=== PATIENT | male | born 1955 | race Two or more races ===

== ENCOUNTER 2023-11-16 08:45 | Outpatient (OUT) | payer BC, MEDICARE, SELFPAY ==
--- NOTE | 2023-11-16 09:12 | ECG_ITS ---
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
--- NOTE | 2023-11-16 10:02 | XR_ITS ---
The [address] [address] Patient Name: CAROLYN CAMARENA MRN: [id number] date: 1955 Sex: M Assigned Patient Location: [facility] Current Patient Location: [facility] Accession/Order Number: [id number] Exam Date: 11/16/2023 09:55 Report Date: 11/16/2023 13:40 At the request of: NEERAJ ROA Procedure: XR chest 2V EXAMINATION: XR chest 2V HISTORY: Preop exam COMPARISON: 02/04/2020 TECHNIQUE: PA and lateral FINDINGS: LUNGS: No significant pulmonary parenchymal abnormalities. VASCULATURE: No increased pulmonary vasculature. PLEURA: No pneumothorax, effusion, or pleural thickening. CARDIAC: No cardiomegaly or cardiac silhouette abnormality. MEDIASTINUM: No visible mass or adenopathy. BONES: Mild degenerative disc disease and spondylosis without visible acute abnormalities. OTHER: Negative. XR/XR chest 2V IMPRESSION: No acute cardiopulmonary process Electronically authenticated by: JT ARNOLD Date: 11/16/2023 13:40
--- NOTE | 2023-11-16 10:10 | P.GSHP_ITS ---
History of Present Illness History of Present Illness Chief complaint: bladder tumor Narrative: Patient presents for preadmission testing. Please see HPI from Dr. Unger dated November 04, 2023. Review of Systems ROS Narrative Please see ROS from Dr. Unger dated November 04, 2023. [facility] History (Updated 11/16/23 @ 09:39 by Eunice Mustafa NP) Heartburn ?R12 - Heartburn (ICD-10) Extremity edema ?R60.0 - Localized edema (ICD-10) Hypertension ?I10 - Essential (primary) hypertension (ICD-10) Coronary artery disease ?I25.10 - Atherosclerotic heart disease of [place] coronary artery without angina pectoris (ICD-10) Peptic ulcer ?K27.9 - Peptic ulcer, site unspecified, unspecified as acute or chronic, without hemorrhage or perforation (ICD-10) Gross hematuria ?R31.0 - Gross hematuria (ICD-10) BPH with obstruction/lower urinary tract symptoms ?N40.1 - Benign prostatic hyperplasia with lower urinary tract symptoms (ICD- 10) ?N13.8 - Other obstructive and reflux uropathy (ICD-10) Bladder cancer ?C67.9 - Malignant neoplasm of bladder, unspecified (ICD-10) Bladder tumor ?D49.4 - Neoplasm of unspecified behavior of bladder (ICD-10) Dyspnea on exertion ?R06.09 - Other forms of dyspnea (ICD-10) Hyperlipidemia ?E78.5 - Hyperlipidemia, unspecified (ICD-10) Myocardial infarction ?I21.9 - Acute myocardial infarction, unspecified (ICD-10) Atherosclerotic heart disease [place] coronary artery w/angina pectoris ?I25.119 - Atherosclerotic heart disease of [place] coronary artery with unspecified angina pectoris (ICD-10) Surgical History (Updated 11/16/23 @ 09:39 by Eunice Mustafa NP) History of arthroscopy of knee ?Z98.890 - Other specified postprocedural states (ICD-10) History of esophagogastroduodenoscopy (EGD) ?Z98.890 - Other specified postprocedural states (ICD-10) History of bladder surgery ?Z98.890 - Other specified postprocedural states (ICD-10) S/P cystoscopy ?Z98.890 - Other specified postprocedural states (ICD-10) History of tonsillectomy ?Z90.89 - Acquired absence of other organs (ICD-10) History of cardiac catheterization ?Z98.890 - Other specified postprocedural states (ICD-10) History of heart artery stent ?Z95.5 - Presence of coronary angioplasty implant and graft (ICD-10) Presence of coronary angioplasty implant and graft ?Z95.5 - Presence of coronary angioplasty implant and graft (ICD-10) Family History (Updated 11/16/23 @ 09:39 by Eunice Mustafa NP) Other Family history of diabetes mellitus Family history of heart disease Family history of stroke Social History (Updated 11/16/23 @ 09:29 by Eunice Mustafa NP) Within the past year, how often did you have a drink containing alcohol: 2-4 times a month Smoking status: Former smoker Non-prescribed substance use: denies use Previous occupational history: [employer] Highest level of school completed/degree received: high school graduate Meds Home Medications and Allergies Home Medications ?Medication ?Instructions ?Recorded ?Confirmed ?Type ascorbic acid (vitamin C) 1,000 mg 1 g PO DAILY 11/16/23 11/16/23 History capsule aspirin 81 mg tablet,delayed 81 mg PO DAILY 11/16/23 11/16/23 History release (Adult Aspirin Regimen) atorvastatin 40 mg tablet 40 mg PO DAILY 11/16/23 11/16/23 History lisinopril 5 mg tablet 5 mg PO DAILY 11/16/23 11/16/23 History metoprolol succinate 25 mg 25 mg PO DAILY 11/16/23 11/16/23 History tablet,extended release 24 hr nitroglycerin 0.4 mg sublingual 0.4 mg sublingual Q5M PRN chest 11/16/23 11/16/23 History tablet pain Allergies Allergy/AdvReac Type Severity Reaction Status Date / Time No Known Drug Allergies Allergy Verified 11/16/23 09:25 Exam Narrative Exam Narrative: Constitutional: Awake, alert, comfortable, well-appearing, nontoxic, interactive, vital signs as charted Head: Normocephalic, atraumatic Neck: Supple, normal appearance, normal range of motion, no meningeal signs, no lymphadenopathy Respiratory: No respiratory distress, breath sounds clear Cardiovascular: Regular rate and rhythm, strong and regular heart tones Abdomen: Nontender, normal bowel sounds, soft, no CVA tenderness Musculoskeletal: Normal gait, no swelling or edema Skin: No rashes or induration, no lesions, only visible skin inspected Neuro: No neurological deficits, normal sensation, Subtle vocal tremor noted Psychiatric: Oriented ?3, normal affect Assessment and Plan Assessment and Plan (1) Bladder tumor: (2) Bladder cancer: (3) BPH with obstruction/lower urinary tract symptoms: Plan Cystoscopy, left retrograde, left ureteroscopy, TURBT, possible left stent placement scheduled with Dr. Unger December 01, 2023.
[2023-11-16 10:27] LABS: Anion Gap 11.5; BUN Creatinine Ratio 21.6; Calcium 9.1 mg/dL (8.5-10.1); Carbon Dioxide 25.9 mmol/L (21.0-32.0); Chloride 106 mmol/L (98-107); Estimated GFR (African America >60 (>=60); Estimated GFR (Non-African Ame >60 (>=60); Glucose 110 mg/dL (74-106); Potassium 4.4 mmol/L (3.5-5.1); Sodium 139 mmol/L (136-145)
[2023-11-16 10:29] LABS: INR 1.01; Partial Thromboplastin Time 27.3 sec (22.3-36.2); Prothrombin Time 10.7 sec (9.0-11.6)
[2023-11-16 10:55] LABS: Basophils Absolute Auto 0.1 10^3/uL (0.0-0.1); Basophils Percent Auto 1.1 % (0.2-2.0); Eosinophils Absolute Auto 0.3 10^3/uL (0.0-0.7); Eosinophils Percent Auto 4.7 % (0.9-7.0); Hematocrit 42.1 % (42.0-54.0); Immature Granulocytes Abs Auto 0.01 10^3/uL (0.00-0.03); Immature Granulocytes Pct Auto 0.2 % (0.0-0.5); Lymphocytes Absolute Auto 2.5 10^3/uL (1.2-3.8); Lymphocytes Percent Auto 37.9 % (20.5-60.0); Mean Corpuscular HGB Conc 33.3 g/dL (29.9-35.2); Mean Corpuscular Hemoglobin 28.5 pg (25.9-34.0); Mean Corpuscular Volume 85.7 fL (80.0-94.0); Mean Platelet Volume 10.4 fL (9.5-13.5); Monocytes Absolute Auto 0.6 10^3/uL (0.3-0.8); Monocytes Percent Auto 8.6 % (1.7-12.0); Neutrophils Absolute Auto 3.2 10^3/uL (1.4-6.5); Neutrophils Percent Auto 47.5 % (43.0-75.0); Platelet Count 251 10^3/uL (150-450); Red Blood Count 4.91 10^6/uL (4.70-6.10); Red Cell Distribution Width 15.9 % (11.0-15.0); White Blood Count 6.6 10^3/uL (4.0-11.0)
== END 2023-11-16 08:46 | disposition home or self-care (01) ==
LOC: PST 08:54
PROVIDERS: PCP Physician Assistant; Visit Provider Urology
DX: Z01.810 Encounter for preprocedural cardiovascular examination (principal); Z01.812 Encounter for preprocedural laboratory examination; Z01.818 Encounter for other preprocedural examination; D49.4 Neoplasm of unspecified behavior of bladder; Z85.51 Personal history of malignant neoplasm of bladder
CPT/HCPCS: 71046; 80048; 84153; 85025; 85610; 85730; 93005; G0463

== ENCOUNTER 2023-12-01 10:32 | Day surgery (SDC) | payer MEDICARE, SELFPAY ==
[2023-11-16 10:06] VITALS: BP 110/64; PULSE 57; TEMP 36.5; O2SAT 98; BMI 35.8
[2023-12-01] VITALS (15 sets, daily range): BP systolic 104–161; BP diastolic 56–112; PULSE 52–78; TEMP 36.1–36.3; O2SAT 88–96; BMI 35.7
--- OUTSIDE RECORDS SUMMARY | 2023-12-01 10:57 | XMS_ITS | CCD ---
Author Organization [facility] ion [facility] Care Team Providers Care Technical Assistant Name Role Phone Praneeth Hadley Attending Unavailable Damion Mary Etienne Referring Unavailable Mary Bruno Lowell Primary Care Unavailable Mary Bruno Primary Care Provider Lee Ann Morrow Attending Provider Praneeth Hadley Unavailable Unavailable Damion Lowell Unavailable Unavailable MD Mary Bruno Primary Care Provider MD Lee Ann Morrow Attending Provider MARY BRUNO Primary Care Physician [phone] Lee Ann Morrow Attending Unavailable Lee Ann Morrow Admitting Unavailable Mary Bruno Primary Care Unavailable Hemmer Reema GOMEZ Primary Care Provider Randal Flores Attending UnavailRandal Waite Admitting Unavailabl e HemReema negron Primary Care Unavailable HemmerKehindeen M Primary Care Unavailable Kirsty Donnellyeb Attending Unavailable Jose Donnellyjeeb Admitting Unavailable DechristophAmelia Marrero Attending Unavailable Amelia Carrasquillo Admitting Unavailable Hemmer, Reema M Primary Care Unavailable Ivonne Vinson Attending Unavailable Ivonne Vinson Admitting Unavailable Hemmer, Reema M Primary Care Unavailable KIRSTY DONNELLYEB A Attending Unavailable HEMAYDEE REEMA Referring Unavailable HEMMER REEMA Primary Care Unavailable HEMAYDEE REEMA Referring Unavailable HEMMER, REEMA Primary Care Unavailable Ramiro UNGER Attending Unavailable Ramiro UNGER Attending Unavailable Ramiro UNGER Attending Unavailable Ramiro UNGER Admitting Unavailable Ramiro UNGER Attending Unavailable Ramiro UNGER Attending Unavailable Unavailable Unavailable Unavailable Allergies Allergy Classification Reported Allergen(s) Allergy Type Date of Onset Reaction(s) Facility (1 source) No Known Medication Allergies; Translations: [No Known Medication Allergies] Propensity to adverse reactions (disorder) [facility] Repository Medications Current Medications Medication Drug Class(es) Dates Sig (Normalized) Sig (Original) aspirin 81 mg oral tablet (9 sources) Platelet Aggregation Inhibitor, Nonsteroidal Anti-inflammatory Drug Start: 05-04-2017 take 81 mg by mouth once daily aspirin 81 mg, Oral, Daily, Refills(s) 0, Prophylaxis Start Date: 05/04/17 Status: Ordered aspirin 81 mg Ta ke by mouth daily. 0 Active atorvastatin 40 mg oral tablet (10 sources) HMG-CoA Reductase Inhibitor Start: 05-04-2017 End: 07-22-2023 take 40 mg by mouth once daily Lipitor 40 mg, Oral, Daily, Refills(s) 0, High cholesterol Start Date: 05/04/17 Status: Ordered clopidogrel 75 mg oral tablet (3 sources) P2Y12 Platelet Inhibitor Start: 08-25-2020 take 75 mg by mouth once daily Plavix 75 mg, Oral, Daily, Refills(s) 0, Blood Thinner Start Date: 08/25/20 Status: Ordered furosemide 40 mg oral tablet (1 source) Loop Diuretic Start: 09-01-2023 take 1 tablet by mouth once daily furosemide (LASIX) 40 mg tablet Take 1 tablet (40 mg total) by mouth daily. 90 tablet 3 09/01/2023 Active lisinopril 5 mg oral tablet (11 sources) Angiotensin Converting Enzyme Inhibitor Start: 05-04-2017 End: 07-22-2023 take 5 mg by mouth once daily lisinopril 5 mg, Oral, Daily, Refills(s) 0, High blood pressure Start Date: 05/04/17 Status: Ordered 24 hr metoprolol succinate 25 mg extended release oral tablet (11 sources) beta-Adrenergic Blayne Start: 06-24-2023 End: 07-22-2023 take 1 tablet by mouth every twenty-four hours in the morning metoprolol succinate XL (TOPROL XL) 25 mg 24 hr tablet Take 1 tablet (25 mg total) by mouth in the morning. 90 tablet 3 07/22/2023 Active Start: 05-04-2017 End: 06-24-2023 take 1 tablet by mouth once daily metoprolol 25 mg ER Tab 25 mg = 1 tab(s), Oral, Daily, Refills(s) 0, High blood pressure Start Date: 05/04/17 Status: Ordered Nitro 0.4 mg Tab (3 sources) Start: 05-04-2017 Nitro 0.4 mg Tab = 1 tab(s), SubLingual, q5min, PRN Chest pain, # 25 tab(s), Refills(s) 3 Start Date: 05/04/17 Status: Ordered nitroglycerin 0.4 mg sublingual tablet (7 sources) Nitrate Vasodilator Start: 06-23-2022 End: 07-22-2023 nitroglycerin (NITROSTAT) 0.[address] 1 tablet (0.4 mg total) under the tongue as needed (Chest pain). 25 tablet 2 07/22/2023 Active spironolactone 25 mg oral tablet (1 source) Aldosterone Antagonist Start: 09-01-2023 take 1 tablet by mouth in the morning spironolactone (ALDACTONE) 25 mg tablet Take 1 tablet (25 mg total) by mouth in the morning. 90 tablet 3 09/01/2023 Active Completed/Discontinued Medications Medication Drug Class(es) Dates Sig (Normalized) Sig (Original) ciprofloxacin 500 mg oral tablet (3 sources) Quinolone Antimicrobial Start: 10-18-2023 take 1 tablet by mouth every twenty-four hours Cipro 500 mg Tab 500 mg = 1 tab(s), Oral, q24hr, Take 1 tab the day before the procedure and take 1 tab after procedure is complete., # 2 tab(s), Refills(s) 0, Pharmacy: [facility] Start Date: 10/18/23 Status: Ordered Start: 03-17-2022 take 1 tablet by joie th every twenty-four hours Cipro 500 mg Tab 500 mg = 1 tab(s), Oral, q24hr, Take 1 tab the day before the procedure and take 1 tab after procedure is complete., # 2 tab(s), Refills(s) 0, Pharmacy: [facility], 183, cm, 09/10/21 12:17:00 EDT, Height/Length Dosing, 121, kg, 09/10/21 12:... Start Date: 03/17/22 Status: Ordered Problems Active Problems Problem Classification Problem Date Documented Da te Episodic/Chronic Abdominal pain (3 sources) Flank pain 09-11-2020 Episodic Acute myocardial infarction (9 sources) Myocardial infarction; Translations: [Myocardial infarction in recovery phase] Onset: 08-29-2009 03-22-2019 Chronic Cancer of bladder (5 sources) Malignant tumor of urinary bladder; Translations: [Malignant neoplasm of bladder, unspecified] Onset: 05-19-2022 Chronic Cancer; other and unspecified primary (5 sources) H/O: malignant neoplasm 08-25-2020 Episodic Coronary atherosclerosis and other heart disease (13 sources) Coronary arteriosclerosis; Translations: [Atherosclerotic heart disease of [place] coronary artery without angina pectoris] Onset: 01-29-2011 05-04-2017 Chronic Disorders of lipid metabolism (8 sources) Hyperlipidemia; Translations: [Hyperlipidemia, unspecified] Onset: 03-06-2021 03-06-2021 Chronic Essential hypertension (4 sources) Hypertensive disorder; Translations: [Essential (primary) hypertension] 05-04-2017 Chronic Genitourinary symptoms and ill-defined conditions (3 sources) Urge incontinence of urine 09-11-2020 Chronic Genitourinary symptoms and ill-defined conditions (6 sources) Dysuria; Translations: [Mino hematuria] 09-11-2020 Episodic Hyperplasia of prostate (4 sources) Benign prostatic hypertrophy with outflow obstruction; Translations: [Benign prostatic hyperplasia with lower urinary tract symptoms] Onset: 11-04-2023 08-25-2020 Chronic Other aftercare (1 source) Long-term current use of drug therapy; Translations: [MCFP (current) use of antithrombotics/anti platelets] Onset: 11-04-2023 Episodic Other ear and sense organ disorders (1 source) Sensorineural hearing loss, bilateral; Translations: [Bilateral sensorineural hearing loss] Chronic Other male genital disorders (3 sources) Spermatocele 08-25-2020 Episodic Other nutritional; endocrine; and metabolic disorders (9 sources) Body mass index 30+ - obesity; Translations: [Body mass index (BMI) 35.0-35.9, adult] Onset: 03-06-2021 01-29-2021 Chronic Residual codes; unclassified (3 sources) H/O: anticoagulant therapy 03-22-2019 Episodic Residual codes; unclassified (1 source) Pain, unspecified; Translations: [Pain, unspecified] Onset: 08-19-2023 Episodic Screening and history of mental health and substance abuse codes (3 sources) Ex-smoker 03-27-2019 Episodic Unclassified (1 source) Med Refill Onset: 07-22-2023 Unclassified (2 sources) Patient encounter status 11-04-2023 Past or Other Problems Problem Classification Problem Date Documented Date Episodic/Chronic Complication of device; implant or graft (6 sources) Arteriosclerosis of autologous vein coronary artery bypass graft; Translations: [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(s) with unspecified angina pectoris] Onset: 12-13-2014 Resolved: 10-07-2017 10-07-2017 Chronic Coronary atherosclerosis and other heart disease (6 sources) History of cardiovascular surgery; Translations: [Presence of coronary angioplasty implant and graft] Onset: 05-01-2010 03-06-2021 Episodic Other ear and sense organ disorders (1 source) Bilateral tinnitus; Translations: [Tinnitus of both ears] Episodic Other lower respiratory disease (7 sources) Dyspnea on exertion; Translations: [Other forms of dyspnea] Onset: 03-06-2021 06-24-2023 Episodic Other screening for suspected conditions (not mental disorders or infectious disease) (7 sources) Elevated prostate specific antigen [PSA]; Translations: [Cardiovascular stress test abnormal] Onset: 09-07-2019 09-07-2019 Episodic Results Test Name Value Interpretation Reference Range Facil ity Consultation Noteon 11-28-19 24 Consultation Note [id number]#1.00T IFF Normal [facility] ECG 12-Leadon 11-17-2023 ECG 12-Lead [id number]#1.00T IFF Normal [facility] Formson 11-17-2023 Forms [id number]#1.00TI FF [facility] Insurance Correspondenceon 0 11-17-2023 Insurance Correspondence [id number]#1.00T IFF Normal [facility] RAD - MISCon 11-17-2023 RAD - MISC [id number]#1.00TI FF Normal [facility] UroVysion Fish and Urine Cyt o ([facility])on 11-11-2023 UVFISH & UC Diagnosis Info Invalid Interpretation Code [facility] Comment on above: Result Comment: A:Ur ine,Bladder Wash:Bladder Wash Diagnosis Summary - Diagnosis Summary - The UroVysion FISH study detected normal copy numbers for chromosomes 3, 7, 17, and 9p21. 200 cells were analyzed in this evaluation. No evidence of aneuploidy for chromosomes 3, 7, or 17 or deletion of the 9p21 locus was found in cells present in this specimen. This test does not rule out the possibility of a low grade non-invasive papillary urothelial carcinoma. These findings should be correlated with cytology and cystoscopy results.* Microscopic Notes - Microscopic Notes - Abnormal cells 9p21 deletions: Abnormal cells aneploid events: Total cells analyzed: 200 Hematuria: Gross Description Site ID:A color Yellow fixative Alcohol Received 110 mls of clear yellow fluid with the patient's name and, Bladder Wash on the vial. Electronically signed by : on: 11/11/2023 12:35:22 Performed By: #### 1 [id number] #### [facility] [address] [place] [address] Cardiovascular Reporton 10-25 Cardiovascular Report [id number]#1.00TI [facility] Consent for Procedure/Surger yon 11-09-2023 Consent for Procedure/Surgery [id number]#1.00 TIFF Normal [facility] Echocardiographyon Echocardiography [id number]#1.00TI FF [facility] Consent for Procedure/Surger yon 11-07-2023 Consent for Procedure/Surgery [id number]#1.00TI FF [facility] Consent for Procedure/Surgery [id number]#1.00TI FF Normal [facility] Ambulatory Visit Summaryon 0 11-04-2023 Ambulatory Visit Summary CAROLYN CAMARENA :1955 Visit Date:11/04/2023 Ambulatory Visit Instructions Your Diagnosis Bladder cancer BPH with urinary obstruction Antiplatelet or antithrombotic long-term use Your Care Team Attending Physician - CRISPIN ESCAMILLA, Ramiro Camarillo Primary Care Physician - MARY BRUNO MD This Is Your Medications List ciprofloxacin (Cipro 500 mg Tab) Contact prescribing physician if questions or concerns aspirin atorvastatin (Lipitor) clopidogrel (Plavix) lisinopril metoprolol (metoprolol 25 mg ER Tab) nitroglycerin (Nitro 0.4 mg Tab) Procedures Performed Flexible cystoscope (11/04/2023), Flexible cystoscopy (11/04/2023), Cystoscopy (09/10/2021), Cystoscopy (01/29/2021), Cystoscopy (10/29/2020), Cystoscopy (03/27/2019), Cystoscopy and transurethral resection of bladder tumor (05/06/2017), Angioplasty, Arthroscopy of knee, back surgery, Cystoscopy, Stent placement. Discharge Vitals Heart Rate (Peripheral) 68 Respiratory Rate 18 Blood Pressure 146/90 Height 183.0 cm Height 72 in Weight 121 kg Weight 266.2 lb BMI 36.13 What to do next Scheduled Follow-Up Appointments 2023 8:00 AM EDT With: Where: [facility] [id number] [place] [address]- \.br\ You Need to Schedule the Following Appointments\.b r\ Follow Up with CRISPIN ESCAMILLA, Ramiro Camarillo, URL When: \.br\ Where:\.br\ [address]br\ [place] [address]-\.br\ Medications\.br \ What How Much When Instructions\.b r\ Unchanged ciprofloxacin (Cipro 500 mg Tab) 1 Tablets By Mouth Every 24 hours Take 1 tab the day before the procedure and take 1 tab after procedure is complete. \.br\ Unchanged aspirin 81 Milligram By Mouth Every day Contact prescribing physician if questions or concerns \.br\ Unchanged atorvastatin (Lipitor) 40 Milligram By Mouth Every day Contact prescribing physician if questions or concerns \.br\ Unchanged clopidogrel (Plavix) 75 Milligram By Mouth Every day Contact prescribing physician if questions or concerns \.br\ Unchanged lisinopril 5 Milligram By Mouth Every day Contact prescribing physician if questions or concerns \.br\ Unchanged metoprolol (metoprolol 25 mg ER Tab) 1 Tablets By Mouth Every day Contact prescribing physician if questions or concerns \.br\ Unchanged nitroglycerin (Nitro 0.4 mg Tab) 1 Tablets Sublingual Every 5 minutes as needed for Chest pain Contact prescribing physician if questions or concerns \.br\ Medications and Immunizations Administered\.b r\ Given\.br\ lidocaine Top 2% Gel w/Appl 6 mL, 6 mL, Topical. 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 Please share your experience with us by completing your survey. We appreciate your feedback and thank you for choosing us for your care.\.br\ Education Materials\.br\ Transurethral Resection of Bladder Tumor\.br\ \.br\ Transurethral resection of a bladder tumor is the removal (resection) of cancerous tissue (tumor) from the inside wall of the bladder. The bladder is the organ that holds urine. The tumor is removed through the tube that carries urine out of the body (urethra).\.br\ In a transurethral resection, a thin telescope with a light, a tiny camera, and an electric cutting edge (resectoscope) is passed through the urethra. In men, the opening of the urethra is at the end of the penis. In women, it is just above the opening of the vagina.\.br\ Tell a health care provider about:\.br\ ? \.br\ Any allergies you have.\.br\ ? \.br\ All medicines you are taking, including vitamins, herbs, eye drops, creams, and zrjd-kdq-tozoyy r medicines.\.br\ ? \.br\ Any problems you or family members have had with anesthetic medicines.\.br\ ? \.br\ Any bleeding problems you have.\.br\ ? \.br\ Any surgeries you have had.\.br\ ? \.br\ Any medical conditions you have, including recent urinary tract infections.\.br \ ? \.br\ Whether you are or may be .\.br\ What are the risks?\.br\ Generally, this is a safe procedure. However, problems may occur, including:\.br\ ? \.br\ Infection.\.br\ ? \.br\ Bleeding.\.br\ ? \.br\ Allergic reactions to medicines.\.br\ ? \.br\ Damage to nearby structures or organs.\.br\ ? \.br\ Difficulty urinating from blockage of the urethra or not being able to urinate (urinary retention).\.br \ ? \.br\ Deep vein thrombosis. This is a blood clot that can develop in your leg.\.br\ ? \.br\ Recurring cancer.\.br\ What happens before the procedure?\.br\ When to stop eating and drinking\.br\ Follow instructions from your health care provider about what you may eat and drink before your procedure. These may include:\.br\ ? \.br\ 8 hours before your procedure\.br\ ? \.br\ Stop eating most foods. Do not eat meat, fried foods, or fatty foods.\.br\ ? \.br\ Eat only light foods, such as toast or crackers.\.br\ ? \.br\ All liquids are okay except energy drinks and alcohol.\.br\ ? \.br\ 6 hours before your procedure\.br\ ? \.br\ Stop eating.\.br\ ? \.br\ Drink only clear liquids, such as water, clear fruit juice, black coffee, plain tea, and sports drinks.\.br\ ? \.br\ Do not drink energy drinks or alcohol.\.br\ ? \.br\ 2 hours before your procedure\.br\ ? \.br\ Stop drinking all liquids.\.br\ ? \.br\ You may be allowed to take medicines with small sips of water.\.br\ Medicines\.br\ Ask your health care provider about:\.br\ ? \.br\ Changing or stopping your regular medicines. This is especially important if you are taking diabetes medicines or blood thinners.\.br\ ? \.br\ Taking medicines such as aspirin and ibuprofen. These medicines can thin your blood. Do not take these medicines unless your health care provider tells you to take them.\.br\ ? \.br\ Taking szmo-pze-rddbwo r medicines, vitamins, herbs, and supplements.\.b r\ General instructions\.b r\ ? \.br\ If you will be going home right after the procedure, plan to have a responsible adult:\.br\ ? \.br\ Take you home from the hospital or clinic. You will not be allowed to drive.\.br\ ? \.br\ Care for you for the time you are told.\.br\ ? \.br\ Ask your health care provider what steps will be taken to help prevent infection. These steps may include:\.br\ ? \.br\ Washing skin with a germ-killing soap.\.br\ ? \.br\ Taking antibiotic medicine.\.br\ ? \.br\ Do not use any products that contain nicotine or tobacco for at least 4 weeks before the procedure. These products include cigarettes, chewing tobacco, and vaping devices, such as e-cigarettes. If you need help quitting, ask your health care provider.\.br\ What happens during the procedure?\.br\ ? \.br\ An IV will be inserted into one of your veins.\.br\ ? \.br\ You will be given one or more of the following:\.br\ ? \.br\ A medicine to help you relax (sedative).\.br \ ? \.br\ A medicine that is injected into your spine to numb the area below and slightly above the injection site (spinal anesthetic).\.b r\ ? \.br\ A medicine that is injected into an area of your body to numb everything below the injection site (regional anesthetic).\.b r\ ? \.br\ A medicine to make you fall asleep (general anesthetic).\.b r\ ? \.br\ Your legs will be placed in foot rests (stirrups) to open your legs and bend your knees.\.br\ ? \.br\ The resectoscope will be passed through your urethra and into your bladder.\.br\ ? \.br\ The part of your bladder with the tumor will be resected by the cutting edge of the resectoscope.\. br\ ? \.br\ Fluid will be passed to rinse out the cut tissues (irrigation).\. br\ ? \.br\ The resectoscope will then be taken out.\.br\ ? \.br\ A small, thin tube (catheter) will be passed through your urethra and into your bladder. The catheter will drain urine into a bag outside of your body.\.br\ The procedure may vary among health care providers and hospitals.\.br\ What happens after the procedure?\.br\ ? \.br\ Your blood pressure, heart rate, breathing rate, and blood oxygen level will be monitored until you leave the hospital or clinic.\.br\ [facility] Ambulatory Visit Summary CAROLYN CAMARENA :1955 Visit Date:11/04/2023 Ambulatory Visit Instructions Your Diagnosis Bladder cancer BPH with urinary obstruction Antiplatelet or antithrombotic long-term use Your Care Team Attending Physician - Ramiro UNGER MD Primary Care Physician - MARY BRUNO MD This Is Your Medications List ciprofloxacin (Cipro 500 mg Tab) Contact prescribing physician if questions or concerns aspirin atorvastatin (Lipitor) clopidogrel (Plavix) lisinopril metoprolol (metoprolol 25 mg ER Tab) nitroglycerin (Nitro 0.4 mg Tab) Procedures Performed Flexible cystoscope (11/04/2023), Flexible cystoscopy (11/04/2023), Cystoscopy (09/10/2021), Cystoscopy (01/29/2021), Cystoscopy (10/29/2020), Cystoscopy (03/27/2019), Cystoscopy and transurethral resection of bladder tumor (05/06/2017), Angioplasty, Arthroscopy of knee, back surgery, Cystoscopy, Stent placement. Discharge Vitals Heart Rate (Peripheral) 68 Respiratory Rate 18 Blood Pressure 146/90 Height 183.0 cm Height 72 in Weight 121 kg Weight 266.2 lb BMI 36.13 What to do next Scheduled Follow-Up Appointments 2023 8:00 AM EDT With: Where: [facility] Normal [address] [place] [address]- \.br\ You Need to Schedule the Following Appointments\.b r\ Follow Up with CRISPIN ESCAMILLA, Ramiro Camarillo, URL When: \.br\ Where:\.br\ [address]\ [place] [address]-\.br\ Medications\.br \ What How Much When Instructions\.b r\ Unchanged ciprofloxacin (Cipro 500 mg Tab) 1 Tablets By Mouth Every 24 hours Take 1 tab the day before the procedure and take 1 tab after procedure is complete. \.br\ Unchanged aspirin 81 Milligram By Mouth Every day Contact prescribing physician if questions or concerns \.br\ Unchanged atorvastatin (Lipitor) 40 Milligram By Mouth Every day Contact prescribing physician if questions or concerns \.br\ Unchanged clopidogrel (Plavix) 75 Milligram By Mouth Every day Contact prescribing physician if questions or concerns \.br\ Unchanged lisinopril 5 Milligram By Mouth Every day Contact prescribing physician if questions or concerns \.br\ Unchanged metoprolol (metoprolol 25 mg ER Tab) 1 Tablets By Mouth Every day Contact prescribing physician if questions or concerns \.br\ Unchanged nitroglycerin (Nitro 0.4 mg Tab) 1 Tablets Sublingual Every 5 minutes as needed for Chest pain Contact prescribing physician if questions or concerns \.br\ Medications and Immunizations Administered\.b r\ Given\.br\ lidocaine Top 2% Gel w/Appl 6 mL, 6 mL, Topical. 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 Please share your experience with us by completing your survey. We appreciate your feedback and thank you for choosing us for your care.\.br\ Education Materials\.br\ Transurethral Resection of Bladder Tumor\.br\ \.br\ Transurethral resection of a bladder tumor is the removal (resection) of cancerous tissue (tumor) from the inside wall of the bladder. The bladder is the organ that holds urine. The tumor is removed through the tube that carries urine out of the body (urethra).\.br\ In a transurethral resection, a thin telescope with a light, a tiny camera, and an electric cutting edge (resectoscope) is passed through the urethra. In men, the opening of the urethra is at the end of the penis. In women, it is just above the opening of the vagina.\.br\ Tell a health care provider about:\.br\ ? \.br\ Any allergies you have.\.br\ ? \.br\ All medicines you are taking, including vitamins, herbs, eye drops, creams, and oclv-epq-lxvqdm r medicines.\.br\ ? \.br\ Any problems you or family members have had with anesthetic medicines.\.br\ ? \.br\ Any bleeding problems you have.\.br\ ? \.br\ Any surgeries you have had.\.br\ ? \.br\ Any medical conditions you have, including recent urinary tract infections.\.br \ ? \.br\ Whether you are or may be .\.br\ What are the risks?\.br\ Generally, this is a safe procedure. However, problems may occur, including:\.br\ ? \.br\ Infection.\.br\ ? \.br\ Bleeding.\.br\ ? \.br\ Allergic reactions to medicines.\.br\ ? \.br\ Damage to nearby structures or organs.\.br\ ? \.br\ Difficulty urinating from blockage of the urethra or not being able to urinate (urinary retention).\.br \ ? \.br\ Deep vein thrombosis. This is a blood clot that can develop in your leg.\.br\ ? \.br\ Recurring cancer.\.br\ What happens before the procedure?\.br\ When to stop eating and drinking\.br\ Follow instructions from your health care provider about what you may eat and drink before your procedure. These may include:\.br\ ? \.br\ 8 hours before your procedure\.br\ ? \.br\ Stop eating most foods. Do not eat meat, fried foods, or fatty foods.\.br\ ? \.br\ Eat only light foods, such as toast or crackers.\.br\ ? \.br\ All liquids are okay except energy drinks and alcohol.\.br\ ? \.br\ 6 hours before your procedure\.br\ ? \.br\ Stop eating.\.br\ ? \.br\ Drink only clear liquids, such as water, clear fruit juice, black coffee, plain tea, and sports drinks.\.br\ ? \.br\ Do not drink energy drinks or alcohol.\.br\ ? \.br\ 2 hours before your procedure\.br\ ? \.br\ Stop drinking all liquids.\.br\ ? \.br\ You may be allowed to take medicines with small sips of water.\.br\ Medicines\.br\ Ask your health care provider about:\.br\ ? \.br\ Changing or stopping your regular medicines. This is especially important if you are taking diabetes medicines or blood thinners.\.br\ ? \.br\ Taking medicines such as aspirin and ibuprofen. These medicines can thin your blood. Do not take these medicines unless your health care provider tells you to take them.\.br\ ? \.br\ Taking nczo-kmq-kszldr r medicines, vitamins, herbs, and supplements.\.b r\ General instructions\.b r\ ? \.br\ If you will be going home right after the procedure, plan to have a responsible adult:\.br\ ? \.br\ Take you home from the hospital or clinic. You will not be allowed to drive.\.br\ ? \.br\ Care for you for the time you are told.\.br\ ? \.br\ Ask your health care provider what steps will be taken to help prevent infection. These steps may include:\.br\ ? \.br\ Washing skin with a germ-killing soap.\.br\ ? \.br\ Taking antibiotic medicine.\.br\ ? \.br\ Do not use any products that contain nicotine or tobacco for at least 4 weeks before the procedure. These products include cigarettes, chewing tobacco, and vaping devices, such as e-cigarettes. If you need help quitting, ask your health care provider.\.br\ What happens during the procedure?\.br\ ? \.br\ An IV will be inserted into one of your veins.\.br\ ? \.br\ You will be given one or more of the following:\.br\ ? \.br\ A medicine to help you relax (sedative).\.br \ ? \.br\ A medicine that is injected into your spine to numb the area below and slightly above the injection site (spinal anesthetic).\.b r\ ? \.br\ A medicine that is injected into an area of your body to numb everything below the injection site (regional anesthetic).\.b r\ ? \.br\ A medicine to make you fall asleep (general anesthetic).\.b r\ ? \.br\ Your legs will be placed in foot rests (stirrups) to open your legs and bend your knees.\.br\ ? \.br\ The resectoscope will be passed through your urethra and into your bladder.\.br\ ? \.br\ The part of your bladder with the tumor will be resected by the cutting edge of the resectoscope.\. br\ ? \.br\ Fluid will be passed to rinse out the cut tissues (irrigation).\. br\ ? \.br\ The resectoscope will then be taken out.\.br\ ? \.br\ A small, thin tube (catheter) will be passed through your urethra and into your bladder. The catheter will drain urine into a bag outside of your body.\.br\ The procedure may vary among health care providers and hospitals.\.br\ What happens after the procedure?\.br\ ? \.br\ Your blood pressure, heart rate, breathing rate, and blood oxygen level will be monitored until you leave the hospital or clinic.\.br\ [facility] Patient Educationon 11-04-19 Patient Education Oncology Transurethral Resection of Bladder Tumor Transurethral resection of a bladder tumor is the removal (resection) of cancerous tissue (tumor) from the inside wall of the bladder. The bladder is the organ that holds urine. The tumor is removed through the tube that carries urine out of the body (urethra). In a transurethral resection, a thin telescope with a light, a tiny camera, and an electric cutting edge (resectoscope) is passed through the urethra. In men, the opening of the urethra is at the end of the penis. In women, it is just above the opening of the vagina. Tell a health care provider about: ? Any allergies you have. ? All medicines you are taking, including vitamins, herbs, eye drops, creams, and jbtc-hie-asszveu medicines. ? Any problems you or family members have had with anesthetic medicines. ? Any bleeding problems you have. ? Any surgeries you have had. ? Any medical conditions you have, including recent urinary tract infections. ? Whether you are or may be . What are the risks? Generally, this is a safe procedure. However, problems may occur, including: ? Infection. ? Bleeding. ? Allergic reactions to medicines. ? Damage to nearby structures or organs. ? Difficulty urinating from blockage of the urethra or not being able to urinate (urinary retention). ? Deep vein thrombosis. This is a blood clot that can develop in your leg. ? Recurring cancer. What happens before the procedure? When to stop eating and drinking Follow instructions from your health care provider about what you may eat and drink before your procedure. These may include: ? 8 hours before your procedure ? Stop eating most foods. Do not eat meat, fried foods, or fatty foods. ? Eat only light foods, such as toast or crackers. ? All liquids are okay except energy drinks and alcohol. ? 6 hours before your procedure ? Stop eating. ? Drink only clear liquids, such as water, clear fruit juice, black coffee, plain tea, and sports drinks. ? Do not drink energy drinks or alcohol. ? 2 hours before your procedure ? Stop drinking all liquids. ? You may be allowed to take medicines with small sips of water. Medicines Ask your health care provider about: ? Changing or stopping your regular medicines. This is especially important if you are taking diabetes medicines or blood thinners. ? Taking medicines such as aspirin and ibuprofen. These medicines can thin your blood. Do not take these medicines unless your health care provider tells you to take them. ? Taking sqcm-mil-bxddpfs medicines, vitamins, herbs, and supplements. General instructions ? If you will be going home right after the procedure, plan to have a responsible adult: ? Take you home from the hospital or clinic. You will not be allowed to drive. ? Care for you for the time you are told. ? Ask your health care provider what steps will be taken to help prevent infection. These steps may include: ? Washing skin with a germ-killing soap. ? Taking antibiotic medicine. ? Do not use any products that contain nicotine or tobacco for at least 4 weeks before the procedure. These products include cigarettes, chewing tobacco, and vaping devices, such as e-cigarettes. If you need help quitting, ask your health care provider. What happens during the procedure? ? An IV will be inserted into one of your veins. ? You will be given one or more of the following: ? A medicine to help you relax (sedative). ? A medicine that is injected into your spine to numb the area below and slightly above the injection site (spinal anesthetic). ? A medicine that is injected into an area of your body to numb everything below the injection site (regional anesthetic). ? A medicine to make you fall asleep (general anesthetic). ? Your legs will be placed in foot rests (stirrups) to open your legs and bend your knees. ? The resectoscope will be passed through your urethra and into your bladder. ? The part of your bladder with the tumor will be resected by the cutting edge of the resectoscope. ? Fluid will be passed to rinse out the cut tissues (irrigation). ? The resectoscope will then be taken out. ? A small, thin tube (catheter) will be passed through your urethra and into your bladder. The catheter will drain urine into a bag outside of your body. The procedure may vary among health care providers and hospitals. What happens after the procedure? ? Your blood pressure, heart rate, breathing rate, and blood oxygen level will be monitored until you leave the hospital or clinic. ? You may continue to receive fluids and medicines through an IV. ? You will be given pain medicine to relieve pain. ? You will have a catheter to drain your urine. ? The amount of urine will be measured. If you have blood in your urine, your bladder may be rinsed out by passing fluid through your catheter. ? You will be encouraged to walk as soon as y (more content not included)... Normal [facility] Fish and Urine Cyt o ([facility])on 11-04-2023 [facility] Method of Extraction Bladder Wash Normal [facility] Comment on above: Performed By: #### 1 [id number] #### [facility] [address] [facility] [place] [address] [facility] Number of Jars 1 Invalid Interpretation Code [facility] Comment on above: Performed By: #### 1 [id number] #### [facility] [address] [facility] [place] [address] [facility] Specimen Bladder Wash Normal [facility] Comment on above: Performed By: #### 1 [id number] #### [facility] [address] [facility] [place] [address] [facility] Type of Service Technical Only Normal [facility] Comment on above: Performed By: #### 1 [id number] #### [facility] [address] [facility] [place] [address] Urology Office/Clinic Noteon 11-04-2023 Urology Office/Clinic Note Chief Complaint Cysto HPI Staff Cystoscopy for 1 year bladder check. Previous RWR pt. Abx taken History of Present Illness Tests reviewed: none. I have reviewed the previous health record information and history for this patient from Dr. Unger. I have reviewed and verified the staff HPI to be accurate for this encounter. There have been no associated fever, chills, flank pain, or blood in the urine. Denies any urinary infections since last encounter. Review of Systems PHQ Score Initial Depression Screen Score: 0 SCORE ROS - Provider Constitutional: denies weight loss, denies hot flashes. Eyes: denies eye problems. Gastrointestinal: denies nausea, denies vomiting. Cardiovascular: denies chest pain or angina. Integumentary: no dryness Musculoskeletal: denies musculoskeletal symptoms. ENMT: denies otolaryngeal symptoms. Respiratory: no shortness of breath. Heme/Lymph: denies easy bleeding tendency, denies easy bruising tendency. Psychiatric: no confusion, no anxiety. Genitourinary: See HPI. Procedure Operative Information Anesthesia Type: Local Procedure: Local Cystoscopy Complications: None Surgical risks, benefits, details of the procedure have been explained to the patient. Full informed consent has been obtained. Intraoperative Information Prepped: Patient is brought back to the endoscopy suite. Patient is placed in supine position. Patient prepped in the usual fashion with Betadine solution. 2% Xylocaine Jelly is placed per Urethra. After waiting several minutes, the Cystoscope is introduced. The Urethra is: Normal The Prostatic Urethra is: long, obstructing lateral lobes. The Bladder: open tics diffusely, 2 cm papillary TCC tumor over the left UO. No other tumors. Trabeculated: Severe (3) The Ureteral orifices: Show efflux of clear urine. Specimens Removed: Bladder wash sent for FISH and Cytology test Removal: Cystoscope is removed. The patient tolerated it well. Postoperative Information Patient is discharged home with antibiotic coverage. Follow up arranged. Assessment/Plan Former Dr. Morrow pt. 1. Bladder cancer (C67.9: Malignant neoplasm of bladder, unspecified) Initial TURBT 09/2015. Noninvasive papillary urothelial carcinoma, high grade. Muscularis propria is not present for evaluation. Most recent TURBT 10/29/20. Noninvasive papillary urothelial carcinoma, low grade. No detrusor muscle present. Latest cysto neg for recurrence. FISH/cytology neg. -Will schedule cysto, L ureteroscopy, TURBT, L stent placement. The procedure risks, benefits, details, and treatment alternatives have been discussed with the patient. These include bleeding -- sometimes to the point of hemorrhaging, infection, risk of bladder perforation, recurrence of bladder tumor in 60-70% of patients, need for indwelling catheter for a variable amount of time, as well as the rare risk of needing an open operation to repair the bladder, among others. Additional therapy as well as follow-up bladder evaluation will most likely be required. Full informed consent has been obtained. Will order General anesthesia. 2. BPH with urinary obstruction (N40.1: Benign prostatic hyperplasia with lower urinary tract symptoms) PSA: 08/25/20 - 1.740 05/05/22 - 1.460 Not taking any BPH meds. Will order PSA to be done at [facility]. 3. Antiplatelet or antithrombotic long-term use (Z79.02: [facility] (current) use of antithrombotics/antipla telets) Plavix. Elevated risk for periop complications. Follow-up With When Contact Information CRISPIN ESCAMILLA, Ramiro Camar[place], [address] [place] [address]- Additional Instructions: Schedule cysto, L urs, TURBT, L stent Patient Education Transurethral Resection of Bladder Tumor IМарина, personally scribed for Dr. Unger on 11/04/2023 10:46:08. Documentation recorded by the eyadibМарина keller, accurately reflects the services(s) I performed and decisions made by me. Authenticated by Dr. Unger on 11/04/2023 10:47:37.10:46:08. Problem List/Past Medical History Ongoing Antiplatelet or antithrombotic long-term use BMI 36.0-36.9,adult BPH with urinary obstruction Dysuria Flank pain Former smoker Gross hematuria History of bladder cancer Hx of senior care use of blood thinners Personal history of bladder cancer Spermatocele Urge incontinence Historical No qualifying data Procedure/Surgical History Flexible cystoscope (11/04/2023), Flexible cystoscopy (11/04/2023), Cystoscopy (09/10/2021), Cystoscopy (01/29/2021), Cystoscopy (10/29/2020), Cystoscopy (03/27/2019), Cystoscopy and transurethral resection of bladder tumor (05/06/2017), Angioplasty, Arthroscopy of knee, back surgery, Cystoscopy, Stent placement. Medications aspirin, 81 mg, Oral, Daily Cipro 500 mg Tab, 500 mg= 1 tab(s), Oral, q24hr Lipitor, 40 mg, Oral, Daily lisinopril, 5 mg, Oral, Daily metoprolol 25 m (more content not included)... Normal [facility] Comment on above: Result Comment: Elec tronically Signed By: Ramiro UNGER MD\.br\Date and Time Signed: 11/04/23 10:47 EDT\.br\Electronically Co-Signed By: Марина Yadav\Date and Time Co-Signed: 11/04/23 10:46 EDT Reminderson 10-18-2023 Reminders - From: Twyla Dorantes To: EU - Recalls Unger; Sent: 10/18/2023 13:23:28 EDT Show up: 08/25/2024 13:23:00 EST Subject: Cysto/FISH/cytol Due Date/Time: 09/10/2024 13:23:00 EDT Reminder/Recall Patient is due in October 2024 for 1 year cysto/FISH/cytol (bt ck) Normal [facility] Coding Summaryon 08-16-2023 Coding Summary HTMLBase 64 AnjvndigLRb4vAd+PGhlYWQ +RU3ETVMdA62bqSZjyY1eX5 NMTElOSywgQVBQTElOSyIgb bGpTQ8agHRuGBAf IC8+TR0aQIOjWycoxQEme3I 0gFA4F58ydr3hDNzufXM3AE FhHeIvfalnd7asqNu1WZrhK mluOyBt VZOqhD00TLM1vR50Gk46lFB gjKXcy8ezvNe3LvQwFNRyHP N9dXtqNVgin2YtNNUgV71rg DRah8K2 SVQcvFibmGSzQyJfgPG5aN1 wMHadeesmd3qgpqzvWix9ft 64nZOyu4Z7kJT9G8HxitX1S GJvbGQg EfunjWXWxE0mujdid5uihtw rUkVtHKKcPBu2SAw8CUPhjL uzQjUhDE68SAN7YSNuxiZlI 2FsLWFs oZcpJjL8d4G1Rv8LW0GQQyb jI2BKSIAVFCtqqCH+PC90cj 05J9UsNpwnNto8RJCfAUU6z OY8jB3k NCMmOYnrj3P9hRA4A2WvdoG mjo2ro5tiGZDhXSpzE86taX Bvi5H2JMSsrVV0ATDloSzdD iBzaG93 Oyc+CAEpoGeql1YgWpgvw4w ft3qqoVm9XlagOLFwlxFioB mlENG7g3FnFk9wJRWjsQG6p WK4uW6k NxQsCqZ3IRigA503WnLioGV iYidnE52tW3YzxTF+PHRyPj h8MPMeeFniRL7hD0CmCHGjx mctbGVm sDizZX7fZEBwkoghJJIhzF7 qAYYjH4r8BhMuEyW2JZzpF1 McOHHeaorgXk80vK0oNlOqZ vN6AUtr H7TlnaO4GVQwfCXkSPojITD 0N21yz3C4JARxIPNuJQH7tP Y7vW0rqTmgkjlqnDJdcOimr mVydGlj YLhiWVjoF194ZLPytQrrSnC vZGluZyBEYXRlOiAgMDIvMj AvMjAyNDwvdGQ+HFVkCIB6j WxlPSAn kFOqMVsxYm1adHflfXdzRB9 zYFAvigcwRDFzkK6yRGCavP MrtGpcRL0gFXHnqavlm074G iAxMHB0 ZMTwaFEgQ2GyaW8rOqAwXOG vSGXiS6FatKAnXYcuH245RL ctEvW8WGBsmiWeW4MhKXTwh WduOiB0 h9C9Zd9Ac0LgpmumW6VmbVI qPhCoNaetEZb6V8EyMyeidT I+BX87NDYmWE38RFu7SNN9h WxlPSdi IVUsQ5XvpB9oOqUwWXQdVDW kOyc+PHRhYmxlIHdpZHRoPS qgIYWyPbYgpTtbQA8vGb8lW GVyLWNv sFqdySItFkKvj9zuPRAsCJi hIS7zzBukC3UsgFF5NWWos8 v2Xg03V38qB9BmtLG+PGNvb FE5mLB7 oA7bHmGlPjT8XRxaU511IxQ tcOFsHtuel6zie5njcFk1Tm Z6CDAhkkFmgNxjOWR3s3BhW k87D87a IHdpZHRoPSIxNSUiIHZhbGl wbk4emY9mJc2+IFBbrUB0pP B8dX7fKoZvSjW5YHoxD423O nRvcCIv Mhjqs9hdv9sngDl5OhZqKOD zyiPhcBrxTKZ6a4NhHn15W4 UooUdgi9BhEbj0eb36eAIfw 1D2iQW4 W8CmWCPtfnmjyABbqPumJC8 iTPTaalkzBJImqR6lXIMlN0 o7AoAxOfU6OOjeA3JloxN5N GJvbGQg SUKpsHIXcX7ovjyud7kottg zClKjEZFtNAa9LJj1RTGlrO ybIpIwOWC8OmD5ZLI4eKVql H6waVgt ndcbaF2rCjf+ACS7jULypYA RCD1wOufqiRO+GWQuGCI0fN rdSWauUVFxsY0bEKTfL0l0L iAwLjA1 WMtvW2QtdxO1JRLnvMCbCXC vqQICjM7ggwdzt5ufpjelBz EwRSVhJQs8OSv8IXPckTiuH iBsZWZ0 GzA1BAV0aPAagO8lkFhnhsv tfW8lQik+QbwbxStrNGY7VG x5S6VfIpa2BLEjgXqfWM3wa GFkZGlu Df3mnPjuqXwoEJ8lXBOjoxx aj131NfHdv4inJSJwmTVoIB yeDVR4Q24ic7A3FPMqVJRuS ID7xGL2 zR5zoNqcbtlqaJCskCqjjzN saOjtRKulGQsmI038KQZcnI jlSkSoOYr7F4WfJtb0BQLxd DgxLW5m sFNlWInvYd0aoLficNzcPA1 sUSQtyzmvv677MdHfx4ifWH BtuLLmNPjhWQN7V04oc8C0S CMwMDAw RZC1hFN5yI4ngAvvormzvFB mdDsgdmVydGljYWwtYWxpZ2 98IXJiqXmpAwKwiTb4V2AmR we2XZKr qVouNS0xgEOeJXsqFr8ljUz vzYrpCH9tGLTczuyjc422Yi Pxv4ffYJIfkHBbLWdkSWP7F 77td5F7 MKYkYXAxGCK8fBH2aV5xzJb nbjogbGVmdDsgdmVydGljYW pbJQoeB513HPAtzXiuQoAsx GllbnQg ALqhFEy4H9NwVfyaxAN+PC9 1CLSvFU71hZCuuZVdk9vjrK m8OiXjPCUiBHF8wVfwYCvhr 3JkZXIt X60keTAgi3A9XXJdhFzznKN yJyBuoAO3yI5iJObuprric2 prisroGhfgp6xerk92yD92C 29sIHdp ZHRoPSIzMCUiIHZhbGlnbj0 nkB9fMb5+OWHpaDZ8aTV6yC 9yLTYkAwK2XSraR367XiHnf CIvPjxj b5mrd3givYx6AaI0POOlyzJ riCmmVOA8y3YeLn93S23uZF dpZHRoPSIyMCUiIHZhbGlnb l8caB7j Ii8+SNWydJB2rTE2tG6fIoM mInF5GPybN611UqOaiNBrGx wmX00gW0YtuZZ+DCFwMqi5B CBzdHls YK9lfMAyJShjWv0aVZB9QjA uIdHuZKsoM1OkDCSfhablvj vkyQG7CEVtSZKvmU09Ky9iu DogMTBw pAVKyJ2hkbbbi0isjjaxAzR dSSVxNIn4OZy9UUVmqQnrDu LqDJN8KuQ4QWT4pDZxiM6wz Glnbjog iR8sW9TpCBXgqkukGb69uF0 uYwZfYfV1ARueKmj+Q1JBSU meRaRjDEWLOTZFW33jBMBSM H0HND32 FW19dRTry4L3iBY0X3UgXEZ yebjkwchtzHM8ITNtOCBwqN 97zUJaKIlwTh0fu1F9p265Q DAuMDUw kM84Jv9gnRcjODXlnZUCjQ4 woisko8orgjmyGwUgTVIcPQ n8YZj5FBWryFxoOjQxXXC3V nZ9YVY5 hNIhmK6fcLuxrrkddY7hJoa +ZNEaLuxxJHp0YMybqAZ+PH OaIGF4mCdoHIuuGFQkbI8mZ BTaH1p3 BxMsDtA1QXueA0RiWWXbjtf uBs81cP5kYqEuXmY4USbzT8 OepvC8GJAkiLIgRXhvOWV3M 30is8D9 WJJdQRXeCLY6fJD0uB4zfKp nbjogbGVmdDsgdmVydGljYW lkPRglI461AIFzbSwtXcR2W FllYXJz OW86CJ55dBQvn6G6rGW9C7U mWULmxpybcgchdNJ6HBOtHK BheS59dTRuKBmlUc5tw2S0u 206IDAu DRUskD74Bk3nuJiyRMPruOW RnW2vtmuhg0yubitxZaQrYM AnJAy3RSt8OWJzqQqsDnIdX SX1KtM1 HXV0oXZrxR2llKfvqrsjdZ9 wOyc+TUFMRTwvdGQ+PHRkIH A7kZmyBNweAUYzdQ3hQFXwC 0t8MdSc QbU8WZgpH8LiUZMcwmjtMg0 4vY7pCmGdEwV2AZgdW9Hncb P9JMQqiDBmHNbbWLH6J18gg 2P6KEQb NRKkWWP6oWC0mT8esRjuhvy gbGVmdDsgdmVydGljYWwtYW wkY764OEZskRjtLh1DDT65K R29A9Sx PjwvdGFibGU+PHRhYmxlIHd pZHRoPScxMDAlJyBzdHlsZT 4cTj8cESUuBUIodDqekYQmB uSlx2ei MOFwVQveBA5lkLanO7GdrFR 2DFOqp0f3Vb31L61wY6ZshA A+FICvlSX1oTZ6pG6tNeXjY bC2UXxs J227CxBbgKLrPgrjv1abb6m sgLx9TiFiXNZaxgRaqBktHK T3f7TkFa82C68yZNswUROdI SIyMCUi MWLeeRrsdm0cmT2fJg3+PGN lpEG1zYM9yN0jZgSbZyX7JG nkM308ZlEriVOfYtsdL13bS 3JvdXA+ AIQtWoj9LJHkvZqhHK5zwPD dUOhhKw5gSBG0JyXeKjGwXI xeK0MkRGLbqbzupjlwpGE5L DAuMDUw iK47Mu9keMxqBh3aMKEuTVA 4QFCcvLGrN5YnvH4mHeUuSR AuCPNoB4RzuMDhEHnwA603Q GxlZnQ7 KGFpknIiI8WxORVmiQdcNmB 1d5A3Wo0ErPdgpQApTD3xVc DwJAp7H9XbUoh9BBVeyPevM B5ceHBg XHxiYu2iyAincJkmKY7uCAB izixzc434JiRyq2afKSXalD KcHBpfWIA1Y86vm9N0YDXjI DAwMDA7 fJK2fP1gtMtntimeiPDxxBw uddSmuIxyAUqrEUszR449KU EwcZscWiGANfj1H6GrTwl9P CBzdHls LU2liGWnFNaoEh6wkZtzcGe sQY4zBZDbgpbcc961LkYcw2 yqBDDakHEqDDhpJWV4S99ud 1K5IMGy ZHCxQJS8kPR2tX4pnFoouug gbGVmdDsgdmVydGljYWwtYW xrT534ZUVvhVmzPh0RLhb6C 9TnPai2 GJZicSzdJA4qmPZiRKlpBa1 wwQzbpBolBB3xTJOwczyhy4 27GoAjg1uzHAKuwWNxRQrcU KB7I60z k6L7SLCcVISlXJM9rYK0yZ4 hbGlnbjogbGVmdDsgdmVydG cyRBzeCXphS767OCYbsGwkD lBheWVy OjwvdGQ+GJ58ti81B6UoMyq pYns6YVVpTCX1lUX4gT5tVY WmLMdvj9A8zUL6D8WgewGbz e5qc7lf YXB (more content not included)... [facility] Consent Formson 08-15-2023 Consent Forms [id number] GTIFF [facility] US Echocardiogram Completeon 08-12-2023 US Echocardiogram Complete APPROVED REPORT EXAM: Comprehensive 2D, Doppler, and color-flow Echocardiogram BSA: 2.36 m2BP: 140/70 mmHg Rhythm: NSR Indications: Atherosclerotic heart disease of [place] coronary artery with unspecified angina pectoris Past Med. Hx: CAD, Cardiac stents x6, HLD, Former smoker Echo Enhancing Agent Indication: Endocardial border delineation Agent(s) / Amount(s) Used: Definity 6.0 cc Comments: Suboptimal enhanced images despite efforts to optimize settings. Swirling of contrast in the apex. Other Information Study Quality: Technically Difficult. Technically limited study due to poor endocardial definition, body habitus. Conclusion Left ventricular systolic function is low normal. There is normal LV segmental wall motion. Mild concentric left ventricular hypertrophy. Left atrium is mildly dilated. Right atrium is mildly dilated. No significantly abnormal stenotic or regurgitant flows are present. Left Ventricle The left ventricle is normal size. Mild concentric left ventricular hypertrophy. Left ventricular systolic function is low normal. LVEF is 50-55%. There is normal LV segmental wall motion. The left ventricular diastolic function is normal. Right Ventricle Right ventricle is borderline dilated. The right ventricular systolic function is normal. Atria Left atrium is mildly dilated. Right atrium is mildly dilated. Aortic Valve Aortic valve is trileaflet. The aortic valve is normal in structure. Adequate excursion of aortic valve leaflets. There is no aortic valvular stenosis. No aortic regurgitation is present. Mitral Valve Mitral valve leaflets are mildly thickened. Mitral valve leaflets open well. No evidence of mitral valve stenosis. Trace mitral regurgitation. Tricuspid Valve The tricuspid valve is normal in structure. There is trace tricuspid regurgitation. Unable to assess PA pressure. Pulmonic Valve The pulmonary valve is normal in structure. Trace pulmonic regurgitation. Great Vessels The aortic root is normal in size. Due to poor image quality, the IVC could not be assessed. Pericardium There is no pericardial effusion. 2D Dimensions RV Minor (Base)4.20 cmLV EDV (Teich) 115.80 mL IVSd 1.18 cm M: 0.6 - 1.0LV ESV (Teich) 45.64 mL LVDd 4.96 cm M: 4.2 - 5.9Left Atrium 4.62 cm M: 3.0 - 4.0 PWd 1.34 cm M: 0.6 - 1.2Sinus of Valsalva3.31 cm LVDs 3.35 (2.1 - 4.0 cm) Sinotubular Junction2.84 cm M: 2.6 - 3.2 LV Ksqi522.31 g LVOT Diameter 2.73 cm M-Mode Dimensions Aortic Root3.15 cm M: < 4.0MV EPSS0.44 ( < 0.7 cm) Aortic Cusp Exc2.60 (1.5 - 2.6 cm)TAPSE 1.9 (>1.7) Left Atrium5.15 cm M: 3.0 - 4.0 LV Volume - Method of Disks (Reyes's) Single Plane 2D LV VolumesBiplane 2D LV Volumes LV EDV Q8W038.7 mLLV EDV BP168.36 mL M: 62 - 150 LV ESV E9J891.7 mLLV ESV BP88.8 mL LVEF(%) A4C42.4 %LVEF(%) BP47.23 % M: 52 - 72 LV EDV U4W430.2 mLLV EDV BP Index71.33 mL/m2 M: 34 - 74 LV ESV A2C68.5 mLSV (BP)79.52 mL LVEF(%) A2C55.8 %SV (BP) Index33.66 mL/m2 CO BP4.6 L/min Right Atrium Area Systole RA Systolic Area A4C21.61 cm2RA Systolic Vol A4C65.40 mL Aortic Valve AoV Peak Velocity1.16 m/sLVOT Peak Velocity0.84 m/s AO Mean Velocity0.77 m/sLVOT Mean Velocity0.48 m/s AO Peak PG5.35 mmHgLVOT Peak PG2.83 mmHg AO Mean PG2.70 mmHgLVOT Mean PG1.13 mmHg AO V2 VTI22.92 cmLVOT V1 VTI18.88 cm JERAD (Vmax)4.24 cm9WAAW Area 5.84 cm2 JERAD (VTI)4.81 cm2SV (LVOT) 110.19 mL Indexed JERAD (VTI)2.04 cm2/m2 Mitral Valve MV Max Qfbujwny499.59 m/sMV PHT61.29 ms MV E Max Velocity0.48 m/sMVA (PHT)3.59 cm2 MV A Max Velocity0.45 m/sMR SSG678.52 cm E/A Ratio1.1MR Peak Velocity3.26 m/s MV Decel. Cnlj888.34 ms TDI Med e' Velocity7.04 cm/sMV E / Medial e' 6.88 Lat e' Velocity9.58 cm/sMV E / Lateral e' 5.05 TV S'12.03 cm/s Pulmonary Valve PV Peak Velocity1.09 m/sPV Peak PG4.80 mmHg OK End Diastolic Griffin.65.78 m/s PV Mean PG2.54 mmHg Tricuspid Valve TR Peak Velocity2.48 m/s TR Peak PG24.54 mmHg Final Signed (Electronic Signature): Randal Flores MD 08/15/23 10:39 a Technologist: [facility] Provider Orderson 07-27-2023 Provider Orders [id number] 0[facility] Coding Summaryon 07-15-2023 Coding Summary HTMLBase 64 ZnytfrrqNUp0pXf+PGhlYWQ +SZ4BAXJlJ88wuPKgeL8iC6 NMTElOSywgQVBQTElOSyIgb qGhGX2raNPzBOXf IC8+KL1vWQTwLxxolVAoo6O 4wYU7S91uar5dZTkpkRK6KU ElOzVmmodlu4dblCc8PWymW mluOyBt SOXymN44OOQ0cT32Zg20gHQ jkXMuq8tgvOc5ZeWzZJEgCT G7yDepRFrmy3VaORXdX15pr ULkl4N1 SALfyLhwqWMcVyRecBJ8iF6 rCRjiifmky8lgwzerUtc8le 44hBVlo0I0pGG0P1WpgfA5Y GJvbGQg QucrrLVLqB4fqwsxo8igdur tRtWwQKZzFIa6DLz9WGKolR uaBuGiBY85GHB9NXNowpVzF 2FsLWFs ySpvZzG6j0H7Yi8YG8JNBze fF4GUQACKWUpnmIS+PC90cj 32J5MqElagEid4OZXhLNE0d QR8sT0n JYAgAHhxs6E3oJO0S8DzyjR zzx9wp8feGIWvPEtzU41ahG Yrl1L6ZGKxzBL8SNCxeSfvR iBzaG93 Oyc+JXMedNczi4ZtGheii1o ki5aisRw7KvqrBMYsnmSsrW xxUTS8m9AvYy0vGRBngKG0x AF6gX2j EkUuAsB6YRlfP760CyJmwXN aCdshF45pN9PdyHB+PHRyPj k8EQBulKrzGV5jR0BrYEIly mctbGVm oBfaKQ9wIPLgvefjTGKajX9 oSLHzE1e7RaViJkB2IOtdJ6 YqCUCenzhcRk01wO9sEoHyW mS2PJyo C4UuyhD3FOOvkBLbOYupDWY 4D35xp8Z5PQWsOREpIGD6iM S0dR4tlJodhqzfwEWjjJwnd mVydGlj KPpdUWpdV337MRWqcItoYvL vZGluZyBEYXRlOiAgMDEvMT kvMjAyNDwvdGQ+GGNzMSV6m WxlPSAn eFAfEYbmVp8ceQgczBnbCI9 eUSJzvepkFAPfrQ2iLIVlvV VomKvrGZ1eCQScyeudf599H iAxMHB0 TOEsmAJbC3WqmV5lJxThIYC gLSRxB8VwaROjSYwdC511UU plDlG3WUHagnPaI2KiYRTdm WduOiB0 e5G8Zr3Ai7DizahjB4JgjOE vKgBlWdupIJs8L0SnLcbsvG I+HD11VPEuLW75OIq1KQQ7z WxlPSdi SAGcJ2RmxL0iQrPbEYAgNOF kOyc+PHRhYmxlIHdpZHRoPS ngEDQfVbBngZlfLP8fFq0fH GVyLWNv qPhqgPOaSeFew8etJSZeMIk aTJ4pdSzrH2GmzCV6XULwc7 r6Sz24K97uT3MmeOS+PGNvb CL3nCN7 pL4uSdWjKzS5RFcsZ331AnN qeFJcPuhxj8oqe2jyoOr0Nv B1TBHtdyCywQguCFL3i3YcB u25F30z IHdpZHRoPSIxNSUiIHZhbGl dsu6ueE4mLe8+WOVcsIU7mB C3gD4dPvYtPoK6NDtvR281X nRvcCIv Bxcmm0efi7sajJn0OdOjKXK hodHlxZinQDO9c3EsPy34P7 CxgPwcl7RkDdf9zb24fXMjq 6T1cVT5 D0JwVPXqppyhsPPgoUfbCG6 gOOEhivdlOOSwaI1qYAUeM6 a4DlBoUoY1DTjbG9SjivP1G GJvbGQg XYXlvHZBoO3oulxyr2gkwlp dIsKvRSWpMFf0GOh8KYXstB nrImUcSUB0CiK8ROL1kAYjs P3tiXdi mdfdcV3fHyf+BQV0aGUjuDJ IQA7dMhgwzTY+DXLvMQT6eQ abTKizJLFraV9bXWMiQ0h1G iAwLjA1 NGmkB3UgijR2CAQuhIApODK gpQZDgY3yqhvnj5ryiizeGu BgYHDjARz9NDz5WRRcaOqdZ iBsZWZ0 LkT7RLD3gUXbvU2ptUqyocl fhQ8fArv+WbrpfRlfEHJ0CX w1L0OfGqa5ZMUpeXemLY4qf GFkZGlu Du3vcUwniGvcZL9iEANshfe su548XiLwu4uoNNZidWGuYR osIHI1V39my0P0QFEbNSSlO BM2uVW8 lJ7qgLjzdkrcsRCqxSgympD owIceOFqbJGubG057BQGrzE xjTxPxOWj0K3MaVjc7QRVmk KwgIE8j wEPqRAacNe8dpAfxuZugTL4 sXMZlszlgh225GyOns8hvAM NdnQTeCIfqDOX4D54px4D3G CMwMDAw SJX9kBP6uF6xbMxctajwgAD mdDsgdmVydGljYWwtYWxpZ2 47JFZnsTheOmHvbDi7E4ThD fx1CXKw oKwnIF2kuXOoHRdlTm1fcDs gtNwhCZ2vSITelhftr255Zh Lfm4kgBLEpdNQxYMgmCQH3C 69fj5U4 VHDoLYMvQDR2wOP4aP1xgBg nbjogbGVmdDsgdmVydGljYW kxRTodR213CASbmCxrFoRrj GllbnQg WQriTMo3E9XkGqcijUH+PC9 8NCUxUD02eNOixPNqm8xfrB c4GgMqGBVqRWB0xIwxYKxfm 3JkZXIt K90omRJrh9G5IHZwvCykaUE dMwMnaOQ6tR5hELugnpghx4 rgvyfdIcvoa8zugw38gW88Z 29sIHdp ZHRoPSIzMCUiIHZhbGlnbj0 cgI6jGp7+AJWbzOB7kWJ3hT 5qYCBgOiY3TIatM370CnNhg CIvPjxj q6nkq4pycSx7YnW6WOIuoeU roKvjLWG0t0AhVm74P28rTG dpZHRoPSIyMCUiIHZhbGlnb w0mvQ0c Ii8+CSAueUO3rTH1sT2uBlN vBcB4JDsgT126OpXspBInDp xbG31kT0DypSL+GGDoFpw4G CBzdHls EO4deCTkRDyvAs3eVPB8WdD eRwRnBNcuW8AiYATyjenhcz cseVH9GIBsXGVfdA31Ya3hy DogMTBw uQGBeA8igzujs6cscjvjNaV aLSEuBPp5ABw6SHOdbEwiTx LqKZM4EfP7YIO0eVAgaB0oe Glnbjog jM6hE6UrZOYopsdjWd21zW4 dPcTqIdY1ZHykDhd+Q1JBSU boEmFhSGTSZZVCK81vNRLSN C9FRU37 RT34kDIbu1L8cFV8K2DnJLH suqpqiodvkSW1EZFaDNFhdR 28lEVkTPpjWj9hu3E8p539U DAuMDUw lD82Jw4btVqzAJVqaIETiO7 lfjgqc5kcncjnYfUzSFUtGW z2WSd5QRHszZllAiJdSER0N zA2HJQ3 qWDpbB0wfBfxpbsnzW9wEcj +YMHoHbixEOw2RTvojTW+PH XwGQV5vYlnWRydXMAvuP6tZ LEkX1m0 RaPvMlA1UEzpM6PiFQSzyos fKd72qE4tZcGjTdW4BNqzN5 ExuqG6VPSopDXkEBhdEES0W 07oi8F1 WLYhAWOkKED4xCF0jR9zbSx nbjogbGVmdDsgdmVydGljYW doQRsuS357IIYpyLcaYxY7R FllYXJz PA45TI95nAHyl1G9vXB5K5G aIMTnhtwbijxjxTB6ZJCoVG UwnN08vSTzXPwiBk9zo4Q6e 206IDAu QWJqpL06Op3frAeiYYPnhHR XpX6nmabpl9ptlguxKhCdRQ KqBNp5DNa3RDZjeHwhBiUkJ NE6DpX7 HJD9eNLpfX1lzTlqbuheeX1 wOyc+TUFMRTwvdGQ+PHRkIH C4eWbmPEgwYIXqiO7iBMJyI 7z5UiPx YoC1UDjcL5TgCMSmfukfSz9 5pL8iYpPsRxI7AStaQ5Dxjv K3TKLcnHDrGLfxGKM1Q81ph 4R4XCKh XALkZLC4mQR2nS3ezFyubfi gbGVmdDsgdmVydGljYWwtYW arR222XYCksOhpFi09rGJfj GllbnQg cN9oJURDZSH0C3KnWtaubLE +JN96LJQtAL54eYXfkUIut9 krfUj9PvDqQFSeXNK6iCryP Ytyf0Ad PZXtZ89loSYpx0G4HRZuvUq pqTJnDfOdtQU5vT0wPBfgya ibv1aczaenBvfkc7orsm98o H91O97e IHdpZHRoPSIzMCUiIHZhbGl off9rpF2gQi6+KKQbwYG0uL A3fV0dWuImXuB4FScmF202P nRvcCIv Xoces0red8zicXq6LwUsXFO yadZmcJvuLZV6g7MsSx56D5 9sIHdpZHRoPSIyMCUiIHZhb Yhsfw3o lB8lEk9+PA3ak9lvpu19rC3 8dHI+MIFxCQW9pRpeWAemNZ TteU4kZGgyNiC4INCoEtUbc R42oSHp CSaaTa8ahIglyWbwUN8dVUK etlwad786SbWyg4qqKYFnnY McESwiYOZ4I72uz8Z6QVJvN DAwMDA7 fRG5dI0ekGdubnfurVJptYs ynuDqiNdzNRyaETikX043GU HicHouUlZqqQVhN2tbmbOAP Q7iXuas dGQ+LZMsPFX5tIfaNJcfFTW owX8rGJUaD6x5PtUqBvG7IR vtA8HnetQ6XTWnaZIoYPZrt BUAsY9r apbrm4xlhgxbRwNgOXHfVKi 6JSe4MBEebNwdHsLsYVR1Ov J7IQE2mJEkeO6ehDzrjyljc G9wOyc+ RklOOjwvdGQ+MJUpAYS6pWh cXUpnOYYweV4vXHQhX7c1Ar GtLnU7ZTqxS3VhubU9AVWmz GQgMTBw vIZVbC4plbise9zcupccJyT qZSTgEXz8DQn6ZPCwjYccPn KmIWM9YqZ9YKE3xZQqkJ5qi Glnbjog dL8rSpd+TVJOOjwvdGQ+PHR qASI0aVcaSKjdSTCzeJ2pQF SmE2y4HeIiNcT6KTouW6Yii bP2NTCp lMOiJTCqaFLZyA9bwvnrz2t zivqrLfPfDAGpMDw9CIn5CG JdlUunDnHwAJR6GcT0RER8j JCllB1e oSftxpkzsD0kIjl+KOV9CHF 5XB71IZ10X2SrMfxbmCThwI U+PHRhYmxlIHdpZHRoPScxM DAlJyBz dHl (more content not included)... [facility] Coding Summaryon 07-11-2023 Coding Summary HTMLBase 64 LevmpjlpATn7bNc+PGhlYWQ +QP2WYZYrM67cqPObhO7hM9 NMTElOSywgQVBQTElOSyIgb iDnZX1meSChZEZk IC8+JM6rNJXeNkohmDCsx6R 0xZY6O44wht0bTEjdgNX5MY GgYoZzklvtw1gfxXj2CQsvD mluOyBt VHWaaG09FHS1iW01Tj71oDV xnCOvc5jbqIj3PnLaRCZeOJ T4xDnpRJwjr6FkAKOaG86ps IPqd0P9 YLKbhVnxaJStYoIvrOT2tN1 iVApjodcjd6aunlhiFnm5ve 02gDSwz2U4iVG2Y8XjaqU5X GJvbGQg AbvrgNBBuK3soowkx9veyrf yAqZgQJMbXAx9MYq7ZVXbiN neUzCwFA06RAD6YJQitmZzZ 2FsLWFs nBgpBrN7f5E6Gs8ZF1XCCpw aQ3BDFYATNMlwiGQ+PC90cj 17B4AdAbfcOtw6OLZdBOA2h NF3cO9c NDJvNQprv8X1tVZ9C1PmrhO dwi1lp9bnKUXaPIifL84ofY Gbh5M9WXOvpPI8GIUerPggA iBzaG93 Oyc+OPWgvHjnb1IkVwtkd7t se0uubOq8YeqpKJAcebZmzS ppCQQ6v0OwLl0bXZNmmUH7z JZ9sS1l QaSbLlW5SUuoT550NqHmuPU jZlkvP41zK1EnoFQ+PHRyPj q6XARgpSnqCG0sU8QlIVZpc mctbGVm tJffUW6kIPEhdjkwPUCewK5 vLIDmJ8d5RfJjBwL3PSyhY4 CuJVZlrxijJa11lN9bLoVkM xS7NKpf P7MrmvO0WTFchROwMGxkPTD 6C88zw5Y6DSVyWCQlMTB3iY S7pR0qtMjekhhdtITkrLnot mVydGlj QNwqPToqB489OERspNhrIvA vZGluZyBEYXRlOiAgMDEvMT UvMjAyNDwvdGQ+RWRzJSC4h WxlPSAn jPMmFJhmXw6zcVnydNlyMM2 oEIXayelpNKNreU6jFTDmyJ DdzKycKK9gBOElasqjw300S iAxMHB0 NHTobWTfI0VymU8vZzPlAWX kAFSyM6KnjNRnGFepD089ZF qqFsU1QJMdbzOwM5HaUBTni WduOiB0 r0C1Dw0Vz7ZtvgmcP5IjzPZ dEwOaIceyJEj0K8RsZftqvR I+KE21ZOKmFJ67STb5ZZL4q WxlPSdi HXUkY1YnaO9ySaAwAAWwXNG kOyc+PHRhYmxlIHdpZHRoPS scJAOsVdFzdEevGZ9uGl8uA GVyLWNv bPlhgAMjAnAef5sfEFTlMXo oPI3bnGqqW1SvoVO4CJVyz0 a5Nk86L51nM5GauGQ+PGNvb VZ5vXF0 dM3uWdCcGrO0YLeiF355QkO tfEMdKufvc4xwq5wfnXf3Bg K8CVUsunHiuKxpTYL2z8LyW t53J62r IHdpZHRoPSIxNSUiIHZhbGl hbv4fgT6aQg3+JVBpjZW2yF P5uG1yMhQxFbX1QKysU732A nRvcCIv Wubgx8djx9vdfXr2MrHnADS mmgWadOhrOLS0c5ZoIo20T1 EpyNyvg3IhIbp7ga09wRIww 4B0sJE6 E2AwDBGnidjnxBKtiCwhNU1 aOXLdhnqzQJTodL6cYWDjV4 d4WbLpEhV9DXfaP5RzbwO0J GJvbGQg JKIqgOGKeV2xfsvyv0mukxw jPvLcESJfNXp2YOc2KAJpcN feDaNmABC1RtN9SYU1tKOwk B8zmSiu wuxinI0oCwb+TYD5pOPwhYE RSE9bKfozrXN+PZHeMAJ9wK rjQKmcPCHdcV1eGGIvQ9n7V iAwLjA1 CXlwN3PsawD5CEFfmVHcQUU rzXMOiW3yfiqlh7uiwajnMm KlPETbNLa9XKg9CORwwCvzX iBsZWZ0 NdF6TEC8tJRrfY3uzAmnlkg vxS0pCqc+HvsfmDxxKBH4AK t1E5NtJyp1UEMjvLarHP6vu GFkZGlu Kg4asJghpEzwGC0uBIIlccp vq601KcCjk3rvNZIcvBOfSV coIPB8W01pu1I3PYSiRBGlS KS2rGZ2 nV9gaUbwhrcuwMNazGjznvR xlLhhMNwrLNdcH032CFXfvW siKmQmJNn2F6IkTha6NEXau HqmMT6y dUGqMGzwDc6rlOfzgGfwOM9 vFDXcqctek695JxUhm3qtGK TkdEAmKNfyVBS7D48gb4W0Z CMwMDAw OIJ0tTX6pG0klRfnzbdtpDV mdDsgdmVydGljYWwtYWxpZ2 14RLQcqFovHlZmmOi8E8JgC io5WWNu nStsMC0fsTLjVLndEx8bdLm jjIuzIZ7zUBDycpmlv147Pm Rcv8bvLEMttSQhWZdqYJB7R 75cg4B1 OJBaPPYkDLR8zVL1rF6diAc nbjogbGVmdDsgdmVydGljYW gpKTysM708LGSmkPkyWxBly GllbnQg BFqxXYz6T5MeZpmcpAW+PC9 9PFRgRT83oZLnqFLyt8urbG c0KqHlGHXxKSA2aIdoTQobx 3JkZXIt X06jzMXet7Z5YAOkyDzuiDN fIiFpcHH7lT2eDLdahswvr0 coevouDxfwj5kmqs46rR32E 29sIHdp ZHRoPSIzMCUiIHZhbGlnbj0 pxK1eNt0+KKUoaXU3dGQ3mO 8tMMKiNpS0LShhK521BkVkt CIvPjxj g4ssq8vnsQq9WwL9NXTtzmH svUstRTE6p8QeJm01D00xZB dpZHRoPSIyMCUiIHZhbGlnb v1xrF0w Ii8+RQNptTL4cQU6zB4jBjV oDaF5ZQwqB741CaSksIGdNk deE70jE2FgyNS+EGKhLhv1A CBzdHls PF1qpGGyALxyUm8lHLK9UjR bPhOqTLfkZ9NeFZQtjzehnm jkjGM5FEOiACTsaK91Dq1kz DogMTBw yEYUpK6piwqcj5lgcunpOxQ bGEWkEYf7RYd4UCJrrZdvLx ElNGF9AnD9SHH5lHFhlW0lb Glnbjog iH3wR9PvMFGirpycUw50vJ6 lWdFsJoC7VGatBoc+Q1JBSU hwXcOwIJWXCNMJO29vZZZMC H1NCN29 HA22mUNxw1T8uED5W9EaXNW ftuyqhojfaLX4MOQeFRKcwM 66jMJuEJvoLu9ql8R4n118R DAuMDUw lF22Ms1guEvhKBYyoWQPmL6 jspxnb9filnklPzKmOYDzYX z0POy5OKXnxEcfAjFjVBH4H oR1ILU9 kZLfwN6wfSylgygvaA7hOzh +ERGmKrbaFHm6FVentWR+PH DdPIK7qHopWQgoIKFxpH2fM EBaF3w0 BqLlQuZ7FCztW9OwSRHqqzb hPx04cW2bBxScYpN1BIbvB7 TxceP9OBBhsPQsRPbjUVT9N 22zh9I2 SUNtOEDxIIA6mFI7xV1moVy nbjogbGVmdDsgdmVydGljYW zyCRehJ443FYPewJswYcP7C FllYXJz EY39PW98hEQrm2Z8sNR7W7W kHJWpnsoozmfwkIN8EBHkWD GtcF07rYNcRJkmYf0kb0N8d 206IDAu RUVrwG04Aq0pjKzcCIEcjLA YiS3bjlnfw8yhxtykLdRqFB OyIBa7POe2AMXtvUepHbOjZ GB4KyG1 LET1xWQzsQ0rcAnwjdjcmI5 wOyc+TUFMRTwvdGQ+PHRkIH P4fNxcAOssXOXkeO0oOFJrI 2m1OdXx EfY0YHxuK7PqWWPjlilfVe4 5jC3dHoEyJcN1YChlY1Kgdj U6XQZrwXYoNHktHGY3F03vx 0Q8OSNt HOFsCPW4rDR5aB8qeOrbter gbGVmdDsgdmVydGljYWwtYW urM259QRWdeBwcUi8SNX49G X49K1Co PjwvdGFibGU+PHRhYmxlIHd pZHRoPScxMDAlJyBzdHlsZT 5xUd6pDXYdPUGipLkpoUAkI kZhi1ml AKUmIRqoKE8luHwcU8MyoDI 7QZToe5z5Kl10R37zV0YqxS A+PXVufNK9dQN5pR6pTnBnM vN1ESpi I692YnGodUWqDgqsa6cdg0k qmLr5GnFfPGAxdpEofYokCD N0g1JeWx21V74oBGyhETAzT SIyMCUi RSQxuCvfei6olU9uTn5+PGN pdZF9eFA5iF9hWeUvKiF1JT rnT379BoTdxTQqHuvnF60eX 3JvdXA+ ZPPaOvk0WWOioOdtXF0igCR hNOmyWu5iOQI2SfDpEbDrZG fqP2UmHCNfqmfkbckbtRD1W DAuMDUw tF26Sg5coBduPg8vKAKsVEC 3MHFcnVPlV3XaeW6iDbDuFN YbXFZqF6EiqEUpBTtvY782K GxlZnQ7 BWDqpaLyR0UwNISvwLxxCtE 7a8G2Cx7TqJnckRCnBP3nFa TjEBj6V3WjSgh3XSWgmXkrC U3tyUZi GNdxMc8uiDdlfAgpLC6vSEQ rchqct281XqRbc2tfQPBgbT WaLNuhVRP4H74sp4K2VJPrF DAwMDA7 yGJ8bA4wpCvvfqrmoSNosIg nsjZbjWhtMPqrZWyaW419OG CxsBvuBsSZTzt0U6SbJvf2Q CBzdHls VR5zeRGrUOpjAl8haVbvnSp sOE6tYFAcetutu278TsOxl5 zjCVQlgBTvOAsjKBM8J47uz 3H1CZIh OUMoKQW6jDZ5mM3zwNdesul gbGVmdDsgdmVydGljYWwtYW vmW601AAPpcPrbTx5ZGgg5I 1FwSbd2 UMKgnWxtCV4keFLbEAqhZa8 xuGqxkMxxIF9wYXUnfbsgy8 56SgMwe2rgNRAbiJVxSMpjV RW2M46d z2K1GWJaEVJvLMC5jEP9lC4 hbGlnbjogbGVmdDsgdmVydG inEUwhDWlgE326DVMjuSccC lBheWVy OjwvdGQ+IM66zu01B6JcRwm hIwn0UFRlYXA5eJS8sW4sPK KcSKjeo0W2zRP6D9UvjhOtf r7sz7nh YXB (more content not included)... Normal [facility] Consent Formson 07-05-2023 Consent Forms [id number]#1.00OTG TIFF [facility] Stress Teston 07-05-2023 Stress Test [id number]#1.00OTG TIFF [facility] CMP Standardon 07-04-2023 eGFR Non AA >60 Invalid Interpretation Code [facility] Comment on above: Performed By: #### 1 [id number], [id number] ####[facility] (DEFAULT)[address] [place] [address] 72989 eGFR AA >60 Invalid Interpretation Code [facility] Comment on above: Performed By: #### 1 [id number], [id number] ####[facility] (DEFAULT)[address] [place] [address] 07524 Albumin [Mass/Vol] 4.0 g/dL Normal 3.5-5.0 [facility] Comment on above: Performed By: #### 1 [id number], [id number] ####[facility] (DEFAULT)[address] [place] [address] 54829 Albumin/Globulin [Mass ratio] 1.2 {ratio} Low 1.4-2.6 [facility] Comment on above: Performed By: #### 1 [id number], [id number] ####[facility] (DEFAULT)[address] [place] [address] 27783 Alk Phos 97 IU/L High 32-91 [facility] Comment on above: Performed By: #### 1 [id number], [id number] ####[facility] (DEFAULT)[address] [place] [address] 98914 ALT [Catalytic activity/Vol] 31.0 U/L Normal 17.0-63.0 [facility] Comment on above: Performed By: #### 1 [id number], [id number] ####[facility] (DEFAULT)[address] [place] [address] 15506 Anion gap [Moles/Vol] 10.4 mmol/L Normal 5.0-19.0 [facility] Comment on above: Performed By: #### 1 [id number], [id number] ####[facility] (DEFAULT)[address] [place] [address] 91550 AST [Catalytic activity/Vol] 34 U/L Normal 15-41 [facility] Comment on above: Performed By: #### 1 [id number], [id number] ####[facility] (DEFAULT)[address] [place] [address] 10121 Bili Total 0.5 mg/dL Normal 0.3-1.2 [facility] Comment on above: Performed By: #### 1 [id number], [id number] ####[facility] (DEFAULT)[address] [place] [address] 44742 Calcium [Mass/Vol] 8.9 mg/dL Normal 8.9-10.3 [facility] Comment on above: Performed By: #### 1 [id number], [id number] ####[facility] (DEFAULT)[address] [place] [address] 27644 Chloride [Moles/Vol] 107 mmol/L Normal 101-111 [facility] Comment on above: Performed By: #### 1 [id number], [id number] ####[facility] (DEFAULT)[address] [place] [address] 64821 CO2 [Moles/Vol] 26 mmol/L Normal 21-32 [facility] Comment on above: Performed By: #### 1 [id number], [id number] ####[facility] (DEFAULT)[address] [place] [address] 22102 Creatinine [Mass/Vol] 1.19 mg/dL Normal 0.90-1.30 [facility] Comment on above: Performed By: #### 1 [id number], [id number] ####[facility] (DEFAULT)[address] [place] [address] 83067 Globulin (S) [Mass/Vol] 3.2 g/dL Normal 1.5-4.3 [facility] Comment on above: Performed By: #### 1 [id number], [id number] ####[facility] (DEFAULT)[address] [place] [address] 23764 Glucose [Mass/Vol] 119.0 mg/dL High 74.0-118.0 [facility] Comment on above: Performed By: #### 1 [id number], [id number] ####[facility] (DEFAULT)[address] [place] [address] 35316 Osmolality 282 mOsm/L Invalid Interpretation Code [facility] Comment on above: Performed By: #### 1 [id number], [id number] ####[facility] (DEFAULT)[address] [place] [address] 88400 Potassium [Moles/Vol] 4.4 mmol/L Normal 3.6-5.1 [facility] Comment on above: Performed By: #### 1 [id number], [id number] ####[facility] (DEFAULT)[address] [place] [address] 15391 Protein [Mass/Vol] 7.2 g/dL Normal 6.5-8.1 [facility] Comment on above: Performed By: #### 1 [id number], [id number] ####[facility] (DEFAULT)[address] [place] [address] 31293 Sodium [Moles/Vol] 139.0 mmol/L Normal 136.0-144.0 [facility] Comment on above: Performed By: #### 1 [id number], [id number] ####[facility] (DEFAULT)[address] [place] [address] 82335 Urea nitrogen [Mass/Vol] 21 mg/dL Normal 8-26 [facility] Comment on above: Performed By: #### 1 [id number], [id number] ####[facility] (DEFAULT)[address] [place] [address] 70154 Urea nitrogen/Creatinine [Mass ratio] 17.6 mg/mg High 4.6-16.2 [facility] Comment on above: Performed By: #### 1 [id number], [id number] ####[facility] (DEFAULT)[address] [place] [address] 52492 CV Stress ECGon 07-04-2023 CV Stress ECG DATE OF STUDY: 024 CV STRESS ECG The resting heart rate was 65 bpm. The resting blood pressure was 102/68. The resting 12-lead ECG reveals a sinus rhythm with nonspecific ST-T wave changes noted in the inferior and lateral leads. The patient was administered LEXISCAN per protocol. Heart rate and blood pressure response remained stable. There were no ECG changes indicative of myocardial ischemia. Cardiolite was injected as an imaging agent. IMPRESSION: 1. Negative ECG portion of the LEXISCAN stress test for myocardial ischemia. 2. Cardiolite imaging pending, to be reported separately. iGlson Ramon DO JOB #: [id number] bk Final Dictated by: Gilson Ramon DO Dictated DT/TM: 07/04/23 9:56 Signed (Electronic Signature): Gilson Ramon DO 07/04/23 11:35 a Technologist: FAYE Giron [facility] Lipid Panel Standardon 07-04 Cholesterol [Mass/Vol] 127.0 mg/dL Normal 66.0-200.0 [facility] Comment on above: Performed By: #### 1 [id number], [id number] ####[facility] (DEFAULT)[address] [place] [address] 76170 Cholesterol in HDL [Mass/Vol] 38 mg/dL Low 40-71 [facility] Comment on above: Performed By: #### 1 [id number], [id number] ####[facility] (DEFAULT)[address] [place] [address] 12671 Cholesterol in LDL [Mass/Vol] 72 mg/dL Normal 1-100 [facility] Comment on above: Performed By: #### 1 [id number], [id number] ####[facility] (DEFAULT)[address] [place] [address] 62846 Cholesterol.total/Ch olesterol in HDL [Mass ratio] 3.3 {ratio} Normal 0.0-4.5 [facility] Comment on above: Performed By: #### 1 [id number], [id number] ####[facility] (DEFAULT)[address] [place] [address] 82847 Triglyceride [Mass/Vol] 85.0 mg/dL Normal 0.0-150.0 [facility] Comment on above: Performed By: #### 1 [id number], [id number] ####[facility] (DEFAULT)[address] [place] [address] 68533 VLDL. 17 mg/dL Normal 5-40 [facility] Comment on above: Performed By: #### 1 [id number], [id number] ####[facility] (DEFAULT)[address] [place] [address] 54911 NM Myocardial Spect Multi Re st/Stresson 07-04-2023 NM Myocardial Spect Multi Rest/Stress Nuclear medicine cardiac SPECT stress test with ejection fraction History: Atherosclerotic heart disease; required testing for work. COMPARISON: None Method: For the rest portion of the examination, the patient was injected IV with 14.7 mCi Zalrvckvzl-81u-gtqylbeh i and rest SPECT images were acquired. For the stress portion of the examination, the patient was given 0.4 mg of Lexiscan and then injected IV with 30.5 mCi Fyifbihtah-09a-ozdebouk i and stress SPECT images were acquired. Findings: There is diaphragmatic attenuation. There is relatively normal accumulation of radiopharmaceutical throughout the myocardium on both rest and stress images with no evidence of reversible changes. There is left ventricular dilatation within EDV 152 cc. The ejection fraction equals 53% with no focal wall motion abnormalities. IMPRESSION: No evidence of ischemia. Left ventricular dilatation. Ejection fraction equals 53%. Final Dictated by: Eddie Bass Dictated DT/TM: 07/04/23 4:48 Signed (Electronic Signature): Eddie Bass 07/04/23 4:50 pm Technologist: [facility] Provider [place] 07-04-2023 Provider Orders [id number]#[id number] [facility] Provider [place] 04-13-2023 Provider Orders [id number]#1.00[facility] Coding Summaryon 10-11-2022 Coding Summary HTMLBase 64 HwhkegmeTGx6aDx+PGhlYWQ +DA4XYJIiS57cnTNkmP3UA2 kMIF5YJDAULIGKVN7OCA5lh RT3DHiyR3NvxlRw MchjtRYxVJ70USc6GUB0lEb rTHqmvN5lbKOxN6j9SqUvZM 57dA87JLtlBYThQzL0YgFrd jsgbWFy A3elSpFjaAXgNsf+PHRhYmx lIHdpZHRoPScxMDAlJyBzdH kdVH1dFi5jITStHIYcjXnnl HNlOiBj t3fsTOPaQPluJD6jzNyhT9M znAK5OFSbn4k9Bv89nFH+PH KtNSE7jAstVNhaz134MvYku 1wrHZY5 yVPfYVxgTQF9Y58px1Q9MUQ rSKWlZTV5sTH8tH1saLjvpy cbJ0AdkRTcRrS2CVG6bGBgf E0rxCbj fmuntM2eRgp+E46TSO8QFFA JCZ8UNbh8C2XdUgmdqJW+PC 98BFQbVL27rEFkiAWbt4nvb Tv4WnZd RBIqJMQ4nLtfYEdpn6PzUGR yG07byNPoz3P0EHZepWdseQ LpFwJtlIT1wR3xYFeoywazi 2hvdzsn Nifnf2cvjm91yJ01Y28dPXv xVTGuOMB5XPYvFTPepFduso 2vrC0zHg5+ANdjm6mbv1tjq Ks5JaNs MKXhpaFfoOugXEJ0l9UsKt9 4N1RvvWwlv5HmXlt0rw89kT Cpt9M0hKV5QLciSHSwwJ7iE WxlZnQ6 WXMrBeEbkV27wIHmOMnyYt1 snZuraKsrPA9sXRKkuhpbHK FedY6kRZDsbROrnOgrIG8jP TBpbjtm x089UaElFON5EAPwhMIuR8I sqE0xQaYeQUZfGDOgC4LevN TwFSmqM544LDygFnP5XNQrx eYkV6Rm LWXpcLefCcC3p5E5Un3Fd1D nmvfiCOQ6VBueRIY9TaG6Lp DjJbK6G2ClTaq3OYIyoIdoR S9sA3Br KBDjzwzzegsmfHT9SODiPAV dxF09dDXgQZemNr8tc7J7s8 19RBUoSYHuuT46Sg5yvInyP TBwdCBU yD1ojncho1ujqpffOmZlWQT qPXh9FSe6OXCgfYgiDyGqIO G5WfA8GXD3oWWjsV8dnQzve rdvgK5g Oyc+O73rmB6aWMH8JOX0bss gJBHuccVgRU50LV84L4TbTl wvdGFibGU+PGRpdiBzdHlsZ G9dMgAx a6fjl4JmVAogY9PuCAKeBNu dJel9SNLhVKF0cAK3lW9uOC CzHTspc9I6tJQ9D4UuvtLul o1vu8lv YEKsVFlmF71jqWEgp1G4KUL lwOB0ODHbnSwyYrNpfK71Tz c+PTIokAvuv6MfJqhrx0vjw 8ugtJw2 PtLuPBQpopXldPliSFY6g6S kDv76W37eIRfjZSSlRUTgYW XvHXBpbBrgjg3nfZ4iGa2+P GNvbCB3 qFB6eZ5qOKJuLgN9EVvpA00 9IjBasBNgFhoth8sxf8opiF i2IrGcEZJxnrLpyIylKSV6d 5SrWp18 C89pDXbfHRLpXXJhWSIzDFF rxJgjmd5kcD4uLs1+PC9jb2 gftf53iN84sBA+DLUmZBC2w WxlPSdw ICGclV9rWMmvXuU4EHLpCvP oxC84pNHiYYvoCg3efGkbyV pgRU2gLIPqqwohm909QmPcg 2xkIDEw kMRuJMmuOXW3P38ro6G6LIY cIKMxBQE3pKH9nA0ttUfjlc ogbGVmdDsgdmVydGljYWwtY GklC521 IHRvcDsnPlBhdGllbnQgTmF yMTi7F2RtWnu3PAFlpTydBN 7jtCCdVHvuIm6yyCgzbNelO K2hCOOw jpqzd024ImQsz6evEWQcpOO qYMkjVFM8N18xc5F9DELxVM NkOKE1kDZ3uN8cdUumzwaqc GVmdDsg rdTaiGraCWoaFOaiE839UOY klJnsCvNxauWeXEMptZQ7BE 65DY97vYKkw6D8aTR1W3WnT GRpbmct ewlsgIQ3FRKgLWQrvO36Cx2 bpItlOd4tAHCsVLP0EDJjqC RqC3LynP7gMsQwXVJtFUXgW 3RleHQt SOzyU921NVhdKoJ0HUUcptC cP2XpIJDevPigXrI6j9X7Nx 1IA6N5QI88TZ28sFXst3E4p TI0L1Uk ENVymnpjzdidyUC7LYNjQCO iqA49Wo0swYhdXp0lFUMoBV I4QWHtfTGuY6KxkN2eSvCaE DAwMDAw D0IevPRuFYscN186DQevGhX 7TXUnlnXoO0OhJQPjnFtuEh Y5n3O0Ge6NCRq5RW48BT13a SXpr4D9 gRH4R6BwEVEzvkagxosqbMC 1VNNtQPYnhL66Of5peSllOg 5hNUTzQBF8BXOuiGKsS2The A4oSlWe UKBdTPEjM5DesRUaIRdvJ46 4QFnsPoB3XSZmqhMmP2KtUA SikOrjYmK6s5R8Te5TSIOcS F59JPH1 yOI0CF20BI11C9PiUgkqqUY ibGU+PHRhYmxlIHdpZHRoPS hxIVSdDsGsnRgyIY8vQx1cW GVyLWNv sYkenKEaSzIyi7ksLSWbDPw hHV6thGfnR0NgkCA9LRNme8 t4Px79G86yU4IvjXE+PGNvb LS6kIP9 eL0gStTuWdX9FEhpN640MxR amGGoQhncw9hwp6pnoAq5Fi Y7NBByhfPdmSqaGET4h6HnL d51A22b IHdpZHRoPSIxNSUiIHZhbGl oww4piX0nXu0+OCVnqME6gI Y8jT9sPjAqGsL7LJwzJ305X nRvcCIv Ayyvi8nos2gycGy6LlNkDFV mlkUpnLtwWCH1g6TbCv86W8 PdtYvtt4ZmXol3pk06fJPtl 2R1mSC9 E6YgQLUnrlwtpWQffKhsHQ5 rSNDtdqleBUZvkT1jGLXjU3 l3TwDyVpS8STwzX5RnbkU2C DEwcHQg TIvaGGY3O25fw4M7PHWpHAH bXDG1mZI0uC5rhOiegjxhfN VmdDsgdmVydGljYWwtYWxpZ 246IHRv iIbyYODccQ2iPPTnqSAkyIb lTR4kBZOarydkDeISGMnIIC suZGJBUZINR60RFHR7M7UdA ij6BKTw cAgtNB5rkYFoZErhXg1xwKj waFokUK9pWAExmminGFBbsE 4xNQVbeHTshQaxHL1oRGHwz amxq594 VmSvPCS0PWXtzKBgO0YabT6 aWcIzZAUcMDRvY7AxzMKcKF hoF772EIpcKxE0CFIhttUsB 2FsLWFs vYljVwL2e4V0Fy9zKk9hSE3 jNOM9ML24AE87eXUny6P7hP C2E7TrBGHlboxspedrhIN9O DAuMDUw rU67fBCwBKvqMb0gi5K3i82 6YNKpQJQxgE05Bz0jkMbyYU ZbwBXFcD8ercqyi6orjjtcN zAwMDAw RZw2RJi2LQZasNpeWrNbKCA 9OfP8NBX7tGLjgS5pwUrdlz hlmU5bUuo+YiOcTNNfpxR5R 0QxJje0 NXZoiYsmXF7hbMIaYLfjBr5 foJcqfYwrJF9uJFSitwnpUW XgcQ9mQEXpwORacSsxBP6xZ TBpbjtm b548YfLqOFT9WBPnoQEiT6H jkQ4gYvSxISYhGKIcW2OuhZ CfNDpoK034BIzxHfA7YWUyr bQbO6Qs BNDubYueHjI3l4G7Xe2CUYw TSE73KB57qNCap7K7cHB3F0 RtORTpxpvpizzjlUS2ZGDrU DUwaW47 aNOxMDkpGh1gv4R6b704XSA pAZKqvH13Mq5rvYirWLVegR FLqK5eglwzl7xbjsleLiGdN DAwMDt0 HTu8QDMtzNwqDpCgSIN9IkT 7KTZ0aATgzT7nfKbjxqsheW 9wOyc+O5A4B5TxQatkcLY+P C24GECr BW39aEDkzYCbx1elaFy4CaM kCTQsRRJ9bEsgJAcsz1GoJS OxC60ubKKtp4M9VYXltLapw HNlOyBl cRV0tP2dFAetouyyx7vofir kKenbg3hdra98hW31P16pBE dpZHRoPSIzMCUiIHZhbGlnb g6pgJ9p Ii8+CXIlqSN0hPK9kF5aNvS gKjS5XXyzD995RcOiiMOwGu ijo7xgs0ahhKj9ByXcYIWqg mFsaWdu MGY2c1JsAc83R54iDWwsNZV wITJmGOMfGZMffZfzfv3gyS 9wIi8+PN0ya3fsdh80cG45b HI+PHRk QAG1iHxsZFvfTNTrqC7kPHa qDcT3YZCvQkFzuY96hETuMG niGl0qqIwwyOhuHK9uKJCxx aryx035 LaDke8muEZXfiYNcZJrbIMD 1I72fs0I9WYFgFEEdKKJ9eW U0mJ4dlAhiiaqjkZPkeEocw mVydGlj MCmhACqsK591UKKoxTbyCfH crBKnU7rqdiPNEQ8sBdrtkM Q+UHXdFRZ9oNuiJVkhIZPtn R2dJFMo X2n4YtZaEaW5ERdwW5AfrvE 7ZQWcsIPdBVVbaGXWlF1jew mma8kwtwbeFuDjBUHrUHm8C Rz4OIFd nCqxWqAoPDL6HwV2TNG0zMR lvG1csVkikgjadE2pWnc+Rk lOOjwvdGQ+BNKhPGK3kOnrS SdwYWRk sP9sSWSkQ9o2PfRxKuZ7XAv xM0QdhkJ7DHTlkBMcBVGrfY OEgT8utkdyh4qezdhfPtBcL DAwMDt0 PZz9PYKnpYjnEvYkNBA9NlW 8ASS2vFPbeN1txKsqargzkB 9wOyc+TVJOOjwvdGQ+PHRkI DK7iSkh DTpgRDJaiE6qJCBsB5q7CnO yIsV7QQgpB2EgmwO7KGSrnK EhSOCyaPWXoY3asfdai3sjo jogIzAw POFyQQb9ZDw0VWThvOihFmF wLTI8PcB0MSN3iEHtdO9yiL jojintsS2iNkw+VNU5STK4F R18FW93 L0RkEbucfJFebUY+PHRhYmx lIHdpZHRoPScxMDAlJyBzdH vhOV5yZe7uIEMrTHEqiArie HNlOiBj b2x (more content not included)... Normal [facility] Provider Orderson 10-11-2022 Provider Orders [id number]#[id number] TGTIFF Normal [facility] Lipid Panel Standardon 10-08 Cholesterol [Mass/Vol] 109.0 mg/dL Normal 66.0-200.0 [facility] Comment on above: Performed By: #### 1 [id number] ####[facility] (DEFAULT)[address] [place] [address] 79599 Cholesterol in HDL [Mass/Vol] 44 mg/dL Normal 40-71 [facility] Comment on above: Performed By: #### 1 [id number] ####[facility] (DEFAULT)[address] [place] [address] 56558 Cholesterol in LDL [Mass/Vol] 53 mg/dL Normal 1-100 [facility] Comment on above: Performed By: #### 1 [id number] ####[facility] (DEFAULT)[address] [place] [address] Cholesterol.total/Ch olesterol in HDL [Mass ratio] 2.5 {ratio} Normal 0.0-4.5 [facility] Comment on above: Performed By: #### 1 [id number] ####[facility] (DEFAULT)[address] [place] [address] 08123 Triglyceride [Mass/Vol] 63.0 mg/dL Normal 0.0-150.0 [facility] Comment on above: Performed By: #### 1 [id number] ####[facility] (DEFAULT)[address] [place] [address] 25457 VLDL. 13 mg/dL Normal 5-40 [facility] Comment on above: Performed By: #### 1 [id number] ####[facility] (DEFAULT)[address] [place] [address]321 No Panel InformationOrdered By: Lee Ann Morrow on 05-05-2022 Prostate Specific Antigen Total 1.460 ng/mL 0.000-4.000 [facility] PSA Total (Not a Screen)on 07-05-2021 PSA Total (Not a Screen) 1.460 ng/mL Normal 0.000-4.000 [facility] Comment on above: Result Comment: PERF ORMED BY: [place] [address] PATHOLOGIST CARDIOPULMONARY TECHNOLOGIST CHIEF FIORELLA NAIR M.D. Performed By: #### P SATOTAL #### [address] XR Wrist Complete Left*on XR Wrist Complete Left* CLINICAL HISTORY: Left anterior and lateral wrist pain for one day. COMPARISON: None. RESULT: No acute fracture. No dislocation. Well-corticated cyst within the mid pole of the scaphoid. Mild scattered degenerative changes especially involving the thumb CMC and triscaphe joints. IMPRESSION: No acute osseous findings. Report reported and signed by Chaka Stephen on 02/05/2022 0909 Normal [facility] CT UROGRAPHY WITH AND WITHOU T CONTRASTon 09-18-2020 CT UROGRAPHY WITH AND WITHOUT CONTRAST Patient Name: CAROLYN CAMARENA STUDY: CT UROGRAPHY WITH AND WITHOUT CONTRAST; 09/18/2020 9:36 am INDICATION: Hematuria, unspecified Calculus of kidney. COMPARISON: None ACCESSION NUMBER(S): [id number] ORDERING CLINICIAN: LEE ANN MORROW TECHNIQUE: CT Abdomen and pelvis from the lung bases through the symphysis pubis using CT Urogram protocol, including CT of the abdomen and pelvis without IV contrast, followed by 2-phase CT of both the abdomen and pelvis after the uneventful administration of 150 mL Omnipaque 350 intravenous contrast, including nephrographic and excretory phases of the abdomen and pelvis. No oral contrast. Sagittal and coronal reformatted images of both the nephrographic and excretory phases were created and reviewed. 3D maximum intensity projections (3D MIPS) of the contrast-opacified urinary tract were created, reviewed and saved FINDINGS: KIDNEYS AND URINARY TRACT: RIGHT: Stone: Solitary less than 2 mm (too small to measure attenuation) nonobstructing renal stone. No others. None in the ureter Hydronephrosis: Negative Ureteral stricture: Negative Parenchymal mass: Negative. No solid, enhancing or otherwise suspect parenchymal mass lesion Urothelial mass: Negative. No soft tissue attenuation filling defects in the excreted contrast-opacified collecting system or ureter. Limitations: The proximal one third of the ureter was not well enough opacified on the excretory phase to evaluate for an underlying lesion Congenital variant anatomy: Negative; no variant anatomy such as duplicated ureters Other: Small partially exophytic simple cyst posteriorly between the poles LEFT: Stone: Negative Hydronephrosis: Negative Ureteral stricture: Negative Parenchymal mass: Negative. No solid, enhancing or otherwise suspect parenchymal mass lesion Urothelial mass: Negative. No soft tissue attenuation filling defects in the excreted contrast-opacified collecting system or ureter. Limitations: None; the entire ureter was well opacified with excreted contrast on the excretory phase Congenital variant anatomy: Negative; no variant anatomy such as duplicated ureters Other: Two subcentimeter too small to characterize but likely benign low-attenuation parenchymal renal lesions URINARY BLADDER: Stone: Negative Urothelial mass: Negative. No soft tissue attenuation filling defects in the excreted contrast-opacified urinary bladder Limitations: The nondependent two thirds of the urinary bladder was not well enough opacified with excreted contrast to evaluate for an underlying lesion Wall thickening: Negative Surrounding acute inflammatory change: Negative Diverticula: Negative Trabeculations: Negative Congenital variant anatomy: Negative. No variant anatomy such as urachal remnant Fistula: Negative Other: n/a ABDOMEN: LIVER: Normal except for a few scattered small simple cysts of doubtful clinical significance. No enlargement or evidence of cirrhosis or fatty change. No mass or other suspect lesion. SPLEEN: Normal. No enlargement, mass or evidence of splenic vein thrombosis. PANCREAS: Normal. No CT evidence of acute or chronic pancreatitis. No duct dilation. No mass. GALLBLADDER: Normal CT appearance. No dilation, calcified, or gas-containing stones. Other types of gallstones could be occult on CT and detectable only by ultrasound. BILE DUCTS: Normal. No biliary duct dilation. ADRENAL GLANDS: Normal. No nodule or mass. LYMPH NODES: No adenopathy, intraperitoneal, retroperitoneal, pelvic or otherwise APPENDIX: Normal. Not dilated, thick walled or in any other way inflamed in appearance. No inflammatory change about the appendix. COLON: Normal. No sign of acute diverticulitis or other colitis. No annular constricting mass. SMALL BOWEL: Normal. No small bowel dilation or any other sign of small bowel obstruction. No sign of active inflammatory bowel disease. STOMACH / DUODENUM: Grossly normal by CT which has limited sensitivity and specificity for the stomach and duodenum. RETROPERITONEUM: Normal. No acute hemorrhage or inflammatory change. Lymph nodes in a separate dedicated section. OMENTUM, MESENTERY AND PERITONEAL SPACES: Free intraperitoneal air: Negative Free intraperitoneal fluid: Negative Abscess: Negative Other: n/a PELVIS: Transverse diameter of the prostate is approximately 49 mm VASCULATURE: Aortic and iliac atherosclerotic calcifications without aneurysm or other acute finding. No high grade stenosis of the major abdominal aortic branch vessels. Portal venous system patent. ABDOMINAL WALL: Hernia: Moderate-sized fat containing umbilical Other: No acute or contributory abnormality. LOWER CHEST: Bibasilar patchy ground-glass airspace disease somewhat reminiscent of COVID-19 related pneumonia BONES: No acute findings IMPRESSION: THE ONLY STONE IN THE ENTIRE URINARY TRACT IS A LESS THAN 2 MM (FAR TOO SMALL TO MEASURE ATTENUATION) NONOBSTRUCTING RIGHT RENAL STONE. NO OTHERS NO OTHER CONTRIBUTORY ABNORMALITY IN THE URINARY TRACT NO HYDROURETERONEPHROSIS NO EVIDENCE OF ACUTE INFLAMMATION ANYWHERE IN THE URINARY TRACT NO SOLID RENAL PARENCHYMAL MASS NO EVIDENCE OF UROTHELIAL LESION IN THE OPACIFIED URINARY TRACT, NOTING THAT THE NONDEPENDENT 2/3 OF THE URINARY BLADDER AND THE PROXIMAL ONE THIRD OF THE RIGHT URETER WERE NOT WELL ENOUGH OPACIFIED TO EVALUATE NO VARIANT ANATOMY SUCH URACHAL REMNANT OR DUPLICATED/ECTOPIC URETERS NO ACUTE UNANTICIPATED PROCESS IN THE ABDOMEN OR PELVIS OUTSIDE THE URINARY TRACT BIBASILAR PATCHY GROUND-GLASS AIRSPACE DISEASE SOMEWHAT REMINISCENT OF COVID-19 RELATED PNEUMONIA Electronically signed by: CYN HERNANDEZ MD Normal [facility] POCT CREATININE AND GFRon Creatinine [Mass/Vol] 0.9 mg/dL Normal 0.6 - 1.3 [facility] Comment on above: Performed By: #### P CRGF #### [address] [id number] GFR/1.73 sq M predicted among non-blacks MDRD (S/P/Bld) [Vol rate/Area] mL/min/{1.73_m2} Normal >60 mL/min/1.73m2 [facility] Comment on above: Result Comment: POCT eGFR is intended for Radiology screening purposes only. If patient is , multiply result by 1.21. Performed By: #### P CRGF #### [address] [id number] Otheron 08-25-2020 Prostate Specific Antigen Total 1.740 ng/mL 0.000-4.000 [facility] Vital Signs Date Time Vital Sign Value Performing Clinician Alysia salazar 11-04-2023 09:56-0400 Blood Pressure Location Ramiro UNGER [facility] 11-04-2023 09:56-0400 Diastolic blood pressure 90 mm[Hg] Ramiro UNGER [facility] 11-04-2023 09:56-0400 Heart rate 68 /min Ramiro UNGER [facility] 11-04-2023 09:56-0400 Respiratory rate 18 /min Ramiro UNGER [facility] 11-04-2023 09:56-0400 Systolic blood pressure 146 mm[Hg] Ramiroludmila UNGER [facility] 07-22-2023 10:11-0500 Body height 182.9 cm Catherine Donnelly MD Work Phone: [facility] 07-22-2023 10:11-0500 Body mass index (BMI) [Ratio] 36.48 kg/m2 Catherine Donnelly MD Work Phone: [facility] 07-22-2023 10:11-0500 Body weight 122.02 kg Catherine Donnelly MD Work Phone: [facility] 07-22-2023 10:11-0500 Diastolic blood pressure 78 mm[Hg] Catherine Donnelly MD Work Phone: [facility] 07-22-2023 10:11-0500 Heart rate 73 /min Catherine Donnelly MD Work Phone: [facility] 07-22-2023 10:11-0500 SaO2% (BldA) [Mass fraction] 97 % Catherine Donnelly MD Work Phone: [facility] 07-22-2023 10:11-0500 Systolic blood pressure 108 mm[Hg] Catherine Donnelly MD Work Phone: [employer] Encounters Encounter Date Encounter Type Care Provider Facility Start: 12-14-2023 ambulatory Ramiro UNGER Facili ty:[facility] Start: 12-08-2023 ambulatory Ramiro UNGER Facili ty:[facility] Start: 12-01-2023 ambulatory Ramiro UNGER Facili ty:[id number] Start: 11-04-2023 End: 11-04-2023 Lab Drop off Ramiro UNGER [facility] Start: 11-04-2023 End: 11-04-2023 ambulatory Ramiro UNGER Facility:[facility] Start: 11-04-2023 End: 11-04-2023 Patient encounter procedure Ramiro UNGER [facility] Start: 09-01-2023 Orders Only Federico Irwin MD Work Phone: [facility] Sign In Comment on above: Hypertension, unspec ified type (Primary Dx) Edema Start: 08-19-2023 ambulatory [facility] Start: 08-12-2023 End: 08-13-2023 ambulatory [facility] Facility:[facility] Start: 07-22-2023 End: 07-22-2023 ambulatory [facility] Start: 07-22-2023 End: 07-22-2023 Office outpatient visit 25 minutes Catherine Donnelly MD Work Phone: [facility] Comment on above: 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, unspecified whether asa[place] or transplanted heart ([facility]) (Primary Dx); Mixed hyperlipidemia Start: 07-21-2023 Telephone encounter Donna Gilmore [facility] Start: 07-07-2023 Telephone encounter Brittanie Tavarez RN [facility] Comment on above: 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 Start: 07-04-2023 End: 07-09-[facility] Start: 06-24-2023 Refill [facility] Comment on above: Med Refill Start: 10-08-2022 End: 10-09-2022 ambulatory Randal Flores Facility:[facility] Start: 05-19-2022 End: 05-19-2022 Patient encounter procedure Lee Ann MORROW [facility] Start: 05-05-2022 End: 05-05-2022 ambulatory Lee Ann Morrow Facility[facility] Start: 05-05-2022 End: 05-05-2022 ambulatory MD Mary Bruno Work Phone: [facility] Work Phone: Start: 05-05-2022 End: 05-05-2022 Patient encounter procedure MD Mary Bruno Work Phone: [facility] Jonah Springer Start: 08-25-2020 End: 08-25-2020 Patient encounter procedure Mary Bruno -[facility] Start: 10-27-2018 Patient encounter procedure Praneeth Hadley Facility:[id number] Start: 04-28-2017 Preoperative state Lucy Valentino RN [facility] Procedures Date Procedure Procedure Detail Performing Clinician Start: 11-04-2023 Flexible cystoscope (physical object) Ramiro UNGER Start: 11-04-2023 Flexible cystoscopy Zakia UNGER Start: 07-22-2023 Follow-up visit Follow-up CATHERINE DONNELLY Start: 09-10-2021 Cystoscopy Lee Ann RIVKA E Start: 01-29-2021 Cystoscopy Lee Ann RIVKA E Start: 10-29-2020 Cystoscopy Lee Ann IRVKA E Comment on above: cystoscopy, bilatera l retrograde, TURP, Mitomycin instillation Start: 03-27-2019 Cystoscopy Lee Ann RIVKA E Start: 10-27-2018 Follow-up visit Start: 05-06-2017 Cystoscopy and transurethral resection of bladder tumor Lee Ann ZULEIKA Angioplasty of blood vessel Lee Ann ZULEIKA Comment on above: with heart stent Arthroscopy of knee Lee Ann SPRING Comment on above: left back surgery Lee Ann ZULEIKA Cystoscopy Lee Ann ZULEIKA Comment on above: multiple Placement of stent Lee Ann MOTLEY Plan of Treatment Date Care Activity Detail Author Start: 07-22-2024 Adult BMI Screening Adult BMI Screen ing [facility] Start: 07-22-2024 Tobacco Screening Tobacco Screening [facility] Start: 09-16-2023 End: 09-16-2023 Patient encounter procedure 09/16/2023 10:30 AM EDT Office Visit [facility] [address] [place] [phone] Randal Flores MD [address] [place] [address] [facility] Start: 07-22-2023 Adult BMI Screening Adult BMI Screen ing [facility] Start: 07-22-2023 End: 07-22-2024 Echo complete W/O contrast Echo complete W/O contrast Echocardiography Routine Atherosclerosis of asa'[place] coronary artery with angina pectoris, unspecified whether [place] or transplanted heart ([facility]) Expected: 07/22/2023, Expires: 07/22/2024 [facility] Work Phone: Comment on above: Expected: 07/22/2023 , Expires: 07/22/2024 Start: 07-22-2023 Tobacco Screening Tobacco Screening [facility] Start: 07-22-2023 End: 07-22-2023 Patient encounter procedure 07/22/2023 10:15 AM EST Office Visit [facility] [address] [place] [phone] Catherine Donnelly MD [address] [place] [address] [facility] Start: 02-25-2023 COVID-19 Vaccine ( season) COVID-19 Vaccine ( season) [facility] Start: 02-25-2023 Influenza vaccination Influenza Vacc ine [facility] Start: 2022 Fall Risk Screening Fall Risk Screen ing [facility] Start: 2007 Administration of varicella zoster vaccine Zoster (Shingles) Vaccine (1 of 2) [facility] Start: 1976 DTaP,Tdap and Td Vaccines (1 - Tdap) DTaP,Tdap and Td Vaccines (1 - Tdap) [facility] Start: 1975 Adult BMI Follow Up Plan Adult BMI F ollow Up Plan [facility] Start: 1969 Depression Screening Depression Scre ening [facility] Start: 1957 Medicare Annual Well ness Visit Medicare Annual Wellness Visit [facility] End: 08-31-2024 Basic metabolic 2000 panel - Serum or Plasma Basic Metabolic Panel Lab Routine Hypertension, unspecified type 1 Occurrences starting 09/01/2023 until 08/31/2024 [facility] Work Phone: Comment on above: 1 Occurrences starti ng 09/01/2023 until 08/31/2024 End: 06-24-2024 Comprehensive metabolic 2000 panel - Serum or Plasma Comprehensive metabolic panel Lab Routine Coronary artery disease involving asa'[place] coronary artery of asa[place] heart without angina pectoris ADEN (dyspnea on exertion) 1 Occurrences starting 06/24/2023 until 06/24/2024 [facility] Comment on above: 1 Occurrences starti ng 06/24/2023 until 06/24/2024 End: 06-24-2024 Lipid panel Lipid panel Lab Routine Coronary artery disease involving asa'[place] coronary artery of asa'[place] heart without angina pectoris 1 Occurrences starting 06/24/2023 until 06/24/2024 [employer] Work Phone: Comment on above: 1 Occurrences starti ng 06/24/2023 until 06/24/2024 Immunizations Immunization Date Immunization Notes Care Provider Buzz mayes 10-16-2020 SARS-CoV-2 (COVID-19 ) mRNA-1273 vaccine Ramiro UNGER [facility] 09-25-2020 SARS-CoV-2 (COVID-19 ) mRNA-1273 vaccine Lee Ann MORROW [facility] 09-11-2020 SARS-CoV-2 (COVID-19 ) mRNA-1273 vaccine Ramiro UNGER [facility] 08-25-2020 SARS-CoV-2 (COVID-19 ) mRNA-2678 vaccine Lee Ann [email or web address] [facility] NEGATED: Highlighted row has not occurred!09-11-2020 influenza virus vaccine, unspecified formulation Lee Ann [email or web address] [facility] NEGATED: Highlighted row has not occurred!08-25-2020 influenza virus vaccine, unspecified formulation Lee Ann [email or web address] [facility] Payers Date Payer Category Payer Medicare [id number] 2022 Medicare [id number] 2022 Self-pay [id number] 2019 Unknown [id number] 2019 Unknown [id number] 2005 Private Health Insurance [facility] [id number] 1957 Unknown [id number] 2.16. [id number] 1957 Unknown [id number] 2.16.8 [id number] 1957 Unknown [id number] 2.16.8 [id number] 1957 Unknown [id number] 2.16.8 [id number] 1957 Unknown [id number] 2.16.8 [id number] 1957 Unknown [id number] 2.16.8 [id number] 1957 Unknown [id number] 2.16.8 [id number] 1957 Unknown [id number] 2.16.8 [id number] 1957 Unknown [id number] 2.16.8 [id number] 1957 Unknown [id number] 2.16.8 [id number] 1957 Unknown [id number] 2.16.8 [id number] Unknown [id number] 2.16.8 [id number] Social History Date Type Detail Facility Tobacco smoking stat [facility] Unknown if ever smoked [facility] Work Phone: Start: 1955 Sex Assigned At Male [facility] Start: 09-10-2021 End: 11-04-2023 Tobacco smoking status Ex-smoker (finding) [facility] Tobacco smoking status Never [facility] Start: 08-07-2020 End: 07-22-2022 Sex Assigned At [facility] History of tobacco use Current smoker [facility] Start: 07-22-2022 Tobacco use and exposure Smokeless tobacco non-user [facility] Start: 07-22-2022 End: 07-22-2023 Alcohol intake Current drinker of alcohol (finding) [facility] Start: 08-07-2020 End: 07-22-2022 History of Social function [facility] Start: 09-13-2019 [facility] Start: 1955 Sex Assigned At Not on file P [facility] Medical Equipment Procedure Code Equipment Code Equipment Origin al Text Equipment Identifier Dates Jason Xience Connerrr a 3.25x12 Rx - [id number] Start: 09-13-2019 Goals Date Patient Goal Desired Activity /State Functional Status Date Assessment Result Facility 11-04-2023 Functional Status N/A [facility] NEGATED: Highlighted row Functional performance Functional status health issues are not documented Disease TF-Llhyxjgttfpvgk-Vl martin Work Phone: Mental Status Date Assessment Result Facility NEGATED: Highlighted row Cognitive function [Interpretation] Cognitive status health issues are not documented Disease [facility]pek[facility] Work Phone: Clinical Notes 05-19-2022 to 11-04-2023 Telephone Encounter - Brittanie Tavarez RN - 09/01/2023 8:22 AM ESTTelephone Encounter - Federico Irwin MD - 09/01/2023 8:22 AM ESTTelephone Encounter - Brittanie Tavarez RN - 09/01/2023 8:22 AM EST Note Date & Type Note Facility 11-04-2023 Hospital Discharg e instructions Patient Education 11/04/2023 10:45:12 Transurethral Resection of Bladder Tumor Transurethral Resection of Bladder Tumor Transurethral resection of a bladder tumor is the removal (resection) of cancerous tissue (tumor) from the inside wall of the bladder. The bladder is the organ that holds urine. The tumor is removed through the tube that carries urine out of the body (urethra). In a transurethral resection, a thin telescope with a light, a tiny camera, and an electric cutting edge (resectoscope) is passed through the urethra. In men, the opening of the urethra is at the end of the penis. In women, it is just above the opening of the vagina. Tell a health care provider about: Any allergies you have. All medicines you are taking, including vitamins, herbs, eye drops, creams, and xlfv-rwl-utxajah medicines. Any problems you or family members have had with anesthetic medicines. Any bleeding problems you have. Any surgeries you have had. Any medical conditions you have, including recent urinary tract infections. Whether you are or may be . What are the risks? Generally, this is a safe procedure. However, problems may occur, including: Infection. Bleeding. Allergic reactions to medicines. Damage to nearby structures or organs. Difficulty urinating from blockage of the urethra or not being able to urinate (urinary retention). Deep vein thrombosis. This is a blood clot that can develop in your leg. Recurring cancer. What happens before the procedure? When to stop eating and drinking Follow instructions from your health care provider about what you may eat and drink before your procedure. These may include: 8 hours before your procedure ?Stop eating most foods. Do not eat meat, fried foods, or fatty foods. ?Eat only light foods, such as toast or crackers. ?All liquids are okay except energy drinks and alcohol. 6 hours before your procedure ?Stop eating. ?Drink only clear liquids, such as water, clear fruit juice, black coffee, plain tea, and sports drinks. ?Do not drink energy drinks or alcohol. 2 hours before your procedure ?Stop drinking all liquids. ?You may be allowed to take medicines with small sips of water. Medicines Ask your health care provider about: Changing or stopping your regular medicines. This is especially important if you are taking diabetes medicines or blood thinners. Taking medicines such as aspirin and ibuprofen. These medicines can thin your blood. Do not take these medicines unless your health care provider tells you to take them. Taking bkxf-nwu-autqwhk medicines, vitamins, herbs, and supplements. General instructions If you will be going home right after the procedure, plan to have a responsible adult: ?Take you home from the hospital or clinic. You will not be allowed to drive. ?Care for you for the time you are told. Ask your health care provider what steps will be taken to help prevent infection. These steps may include: ? Washing skin with a germ-killing soap. ? Taking antibiotic medicine. Do not use any products that contain nicotine or tobacco for at least 4 weeks before the procedure. These products include cigarettes, chewing tobacco, and vaping devices, such as e-cigarettes. If you need help quitting, ask your health care provider. What happens during the procedure? An IV will be inserted into one of your veins. You will be given one or more of the following: ?A medicine to help you relax (sedative). ?A medicine that is injected into your spine to numb the area below and slightly above the injection site (spinal anesthetic). ?A medicine that is injected into an area of your body to numb everything below the injection site (regional anesthetic). ?A medicine to make you fall asleep (general anesthetic). Your legs will be placed in foot rests (stirrups) to open your legs and bend your knees. The resectoscope will be passed through your urethra and into your bladder. The part of your bladder with the tumor will be resected by the cutting edge of the resectoscope. Fluid will be passed to rinse out the cut tissues (irrigation). The resectoscope will then be taken out. A small, thin tube (catheter) will be passed through your urethra and into your bladder. The catheter will drain urine into a bag outside of your body. The procedure may vary among health care providers and hospitals. What happens after the procedure? Your blood pressure, heart rate, breathing rate, and blood oxygen level will be monitored until you leave the hospital or clinic. You may continue to receive fluids and medicines through an IV. You will be given pain medicine to relieve pain. You will have a catheter to drain your urine. ?The amount of urine will be measured. If you have blood in your urine, your bladder may be rinsed out by passing fluid through your catheter. You will be encouraged to walk as soon as you can. You may have to wear compression stockings. These stockings help to prevent blood clots and reduce swelling in your legs. If you were given a sedative during the procedure, it can affect you for several hours. Do not drive or operate machinery until your health care provider says that it is safe. Summary Transurethral resection of a bladder tumor is the removal (resection) of a cancerous growth (tumor) on the inside wall of the bladder. To do this procedure, your health care provider uses a thin telescope with a light, a tiny camera, and an electric cutting edge (resectoscope) that is guided to your bladder through your urethra. The part of your bladder that is affected by the tumor will be resected by the cutting edge of the resectoscope. A catheter will be passed through your urethra and into your bladder. The catheter will drain urine into a bag outside of your body. If you will be going home right after the procedure, plan to have a responsible adult take you home from the hospital or clinic. You will not be allowed to drive. This information is not intended to replace advice given to you by your health care provider. Make sure you discuss any questions you have with your health care provider. Document Revised: 06/18/2022 Document Reviewed: 06/18/2022 [employer] Patient Education 2022 [facility]. Follow Up Care 10/18/2023 13:14:46 With:CRISPIN ESCAMILLA, Ramiro Camarillo, URL Address: [address] [place] [address] [place] [address]- When: Unknown [facility] 09-01-2023 Miscellaneous Notes Pt calls stating that he has noticed some increased edema in his lower extremities, denies any worsening shortness of breath but does note that is weight is up to 275 pounds (he was at 269 at his 07/22/23 OV). He would like to know if a water pill can be prescribed for him. Pt was last seen by Dr. Donnelly, financial underwriter will message him to advise. I started him on Aldactone and Lasix 40 mg daily. Please tell him to continue to take as long as this weight is up. Then after that he continues to take the Aldactone without the Lasix. Please have him continue to monitor his weight after he stops the Lasix to make sure that he stays euvolemic. BMP in 5-7 days. Thank you. Please arrange for close follow-up. VM left asking pt to please call office to discuss orders. 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 He will try it and see how it goes. Will have labs done, order will be mailed and pt is scheduled for follow up on 09/15 at 10:30. documented in this encounter [employer] 09-01-2023 Telephone encounter Note Pt calls stating that he has noticed some increased edema in his lower extremities, denies any worsening shortness of breath but does note that is weight is up to 275 pounds (he was at 269 at his 07/22/23 OV). He would like to know if a water pill can be prescribed for him. Pt was last seen by Dr. Donnelly, financial underwriter will message him to advise. [facility] 09-01-2023 Telephone encounter Note I started him on Aldactone and Lasix 40 mg daily. Please tell him to continue to take as long as this weight is up. Then after that he continues to take the Aldactone without the Lasix. Please have him continue to monitor his weight after he stops the Lasix to make sure that he stays euvolemic. BMP in 5-7 days. Thank you. Please arrange for close follow-up. [facility] Work Phone: 09-01-2023 Telephone encounter Note VM left asking pt to please call office to discuss orders. 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 He will try it and see how it goes. Will have labs done, order will be mailed and pt is scheduled for follow up on 09/15 at 10:30. [facility] 07-22-2023 History of Presen t illness Narrative Carolyn Camarena Jr. Date of visit: 07/22/2023 Date of : 1955 Age: 67 y.o. 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 atorvastatin (LIPITOR) 40 mg tablet Take 1 tablet (40 mg total) by mouth in the evening. (Patient taking differently: Take 1 tablet (40 mg total) by mouth in the morning.) 90 tablet 0 lisinopriL (PRINIVIL,ZESTRIL) 5 mg tablet Take 1 tablet (5 mg total) by mouth in the morning. 90 tablet 0 metoprolol succinate XL (TOPROL XL) 25 mg 24 hr tablet Take 1 tablet (25 mg total) by mouth in the morning. 90 tablet 0 nitroglycerin (NITROSTAT) 0.[address] 1 tablet (0.4 mg total) under the tongue as needed (Chest pain). 25 tablet 1 No current facility-administered medications for this visit. Chief Complaint Patient presents with Follow-up 1 YR STRESS TEST SCHED 07/04/2023 @ [facility], [facility] TO BE DONE [facility] Coronary Artery Disease Med Refill History of Present Illness 67-year-old male who is here for a yearly follow-up visit. He is past medical history of hypertension, coronary artery disease, hyperlipidemia. In 2019 underwent stent placement in mid LAD with known stents in diagonal branch which were patent. He was experiencing shortness of breath for the last few months reports no angina underwent a stress test that showed no ischemia his EF is 53% on stress test. He is gained 4-5 lb in the last 1 month. Very minimal lower extremity edema. Blood pressure is well controlled BMI is 36. 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 ([facility]) Atherosclerotic heart disease of [place] coronary artery with unspecified angina pectoris ([facility]) Bladder cancer ([facility]) Hyperlipidemia Presence of coronary angioplasty implant and graft ST elevation (STEMI) myocardial infarction of unspecified site ([facility]) No data recorded No data recorded No data recorded Past Surgical History: Procedure Laterality Date BACK SURGERY BLADDER SURGERY 09/2020 REMOVE THE CANCER CARDIAC CATHETERIZATION Cardiac catheterization 09/13/2019 Performed by Mayur Alvarez MD at [facility] C[facility]ATH [facility] Coronary angiogram and left ventricular gram/pressure N/A 09/13/2019 Performed by Mayur Alvarez MD at [facility] C[facility] CATH [facility] CORONARY STENT PLACEMENT KNEE SURGERY Stent drug-eluting left anterior descending N/A 09/13/2019 Performed by Mayur Alvarez MD at [facility] CARDIAC CATH LABS Family History Problem Relation Age of Onset Stroke Mother Heart attack Father Social History Socioeconomic History Marital status: Single Spouse name: Not on file Number of children: Not on file Years of education: Not on file Highest education level: Not on file Occupational History Not on file Tobacco Use Smoking status: Former Smokeless tobacco: Never Vaping Use Vaping Use: Never used Substance and Sexual Activity Alcohol use: Yes Comment: rarely Drug use: No Sexual activity: Defer Other Topics Concern Caffeine Use Yes Social History Narrative Not on file Social Determinants of Health Financial Resource Strain: Not on file Food Insecurity: No Food Insecurity (07/22/2022) Hunger Screening Food Insecurity - Worry: Never True Food Insecurity - Inability: Never True Transportation Needs: Not on file Physical Activity: Not on file Stress: Not on file Social Connections: Not on file Interpersonal Safety: Not on file Housing Instability: Not on file Review of Systems Review of Systems Constitutional: Negative for malaise/fatigue and weight gain. HENT: Negative for hearing loss and nosebleeds. Eyes: Negative for blurred vision and double vision. Respiratory: Positive for shortness of breath (with exertion and cold weather). Negative for sleep disturbances due to breathing and wheezing. Endocrine: Negative for polydipsia. Hematologic/Lymphatic: Negative for bleeding problem. Does not bruise/bleed easily. Skin: Negative for color change, itching and rash. Musculoskeletal: Positive for muscle cramps. Negative for back pain, falls, joint swelling and muscle weakness. Gastrointestinal: Negative for heartburn, hematochezia and melena. Genitourinary: Negative for hematuria. Neurological: Negative for dizziness, headaches, loss of balance, numbness, seizures and tremors. Light-headedness: couple days ago. Psychiatric/Behavioral: Negative for altered mental status, depression and memory loss. Allergic/Immunologic: Negative for environmental allergies and persistent infections. CARDIOVASCULAR: Please review HPI. Physical Examination General appearance: Alert, oriented and cooperative. In no acute distress. Skin: Warm and dry to touch. Head: Normocephalic, without obvious abnormality, atraumatic. Ears, Nose, Mouth, Throat: Throat clear without erythema or exudate. Dentition intact. Eyes: Conjunctivae unremarkable, EOM intact. Neck: No JVD, No carotid bruit. Neck supple, trachea midline. Respiratory: Clear to auscultation bilaterally, no use of accessory muscles. Cardiovascular: RRR with normal S1 and S2 with no murmurs. Gastrointestinal: Soft, non-tender. Bowel sounds normal. Musculoskeletal: No peripheral edema. Neurologic: Oriented to time, person and place, affect appropriate. No focal/major motor defects noted. Psychiatric: Appropriate mood, memory and judgement. VITAL SIGNS: BP 108/78 (BP Site: Left Arm) Pulse 73 Ht 182.9 cm (6') Wt 122 kg (269 lb) SpO2 97% BMI 36.48 kg/m No orders of the defined types were placed in this encounter. There are no discontinued medications. IMPRESSIONS/PLAN Coronary artery disease Prior LAD stent in 2019 prior diagonal branch stent Stress test on 07/04/2023 showed no ischemia EF 53 Continue aspirin metoprolol 2. Mild LV dysfunction Check Echocardiogram no recent echo Shortness of breath with activity 3. Hypertension Controlled on medications, medication refill Recent blood work showed a creatinine of 1.1 with normal electrolytes 4. Hyperlipidemia Recent lipid work reviewed LDL 72 Refilled Lipitor If echo is unremarkable will see him back in a year TODAYS ORDERS No orders of the defined types were placed in this encounter. FOLLOW UP No follow-ups on file. PCP: PATRICIA BOWERS Referring Physician: PATRICIA Bowers [address] [place] [address] [facility]-2023 Miscellaneous Notes Called patient to remind them to bring their most current copy of their medication list with them to their appt. Patient verbalizes understanding. documented [facility] this [facility] 07-21-2023 Telephone encounter Note Called patient to remind them to bring their most current copy of their medication list with them to their appt. Patient verbalizes understanding. [facility] Miscellaneous Notes Pt returns call in regards to stress test results. 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 Refining Equipment Operator will message Dr. Flores as he was the last provider to see the patient. 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 frs Clearance letter created and will fax when patient calls with number. documented in this encounter [employer] 07-07-2023 Telephone encounter Note Pt returns call in regards to stress test results. 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 Refining Equipment Operator will message Dr. Flores as he was the last provider to see the patient. 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 frs [employer] Work Phone: 07-07-2023 Telephone encounter Note Clearance letter created and will fax when patient calls with number. [employer] 07-05-2023 Note [phone] [id number] 06-24-2023 Miscellaneous Notes Last OV 07/22/22 Last CMP 07/01/22. Lab lipids,CMP placed.slm documented in this encounter [facility] 06-24-2023 Telephone encounter Note Last OV 07/22/22 Last CMP 07/01/22. Lab lipids,CMP placed.slm [facility] 05-19-2022 Evaluation + Plan note Diagnostic Tests PendingUroVysion Fish and Urine Cyto ([facility]) 05/19/22 [facility] Evaluation + Plan note Future Appointments Appointment Date:12/08/2023 08:00:00 AM Scheduled Provider: Location:[facility] Appointment Type:URO Nurse Visit Appointment Date:12/14/2023 10:45:00 AM Scheduled Provider:Ramiro UNGER MD Location:[facility] Appointment Type:URO Office Visit Diagnostic Tests PendingPSA Total 11/04/23 [facility] Evaluation + Plan note Future Appointments Appointment Date:12/08/2023 08:00:00 AM Scheduled Provider: Location:[facility] Appointment Type:URO Nurse Visit Appointment Date:12/14/2023 10:45:00 AM Scheduled Provider:Ramiro UNGER MD Location:[facility] Appointment Type:URO Office Visit Diagnostic Tests PendingUroVysion Fish and Urine Cyto ([facility]) 11/04/23 [facility] Evaluation note No assessment inform ation available [facility] Work Phone: Evaluation note Diagnosis Coronary artery disease involving asa'[place] coronary artery of [place] heart without angina pectoris- Primary ADEN (dyspnea on exertion) Other dyspnea and respiratory abnormality [facility] Diagnosis Atherosclerosis of [place] coronary artery with angina pectoris, unspecified whether asa[place] or transplanted heart ([facility])- Primary Mixed hyperlipidemia [facility]* Diagnosis Hypertension, unspecified type- Primary [facility] Narrative No data available for this section [facility] [employer] [facility] Discharge instructions No data available for this section [facility] [employer] InstructionsNot on filedocumented in this encounter [facility] filedocumented in this encounter [facility]ructions[facility] on filedocumented in this encounter [facility]ructions[facility] on filedocumented in this encounter [facility]ructionsNot on filedocumented in this encounter [facility]ructionsNot on filedocumented in this encounter [facility] No data available for this section [facility] [employer] Summary Purpose Family History No Family History Records FoundNo Family History Records FoundNo Family History Records FoundNo Family History Records FoundNo Family History Records FoundNo Family History Records FoundNo Family History Records Found No data available for this section No data available for this section No Family History Records FoundNo Family History Records Found Advance Directives No Advanced Directives Records Found Advance Directive Response Recorded Date/ Time Advance Directives No July 31, 2019 4:36pm Assessments No Assessments Information Available Reason for Referral Specialty Diagnoses / Procedures Referred By Yvette vitale Referred To Contact Diagnoses Atherosclerosis of asa'[place] coronary artery with angina pectoris, unspecified whether [place] or transplanted heart ([facility]) Procedures Echo complete W/O contrast Catherine Donnelly MD [address] [place] [address] Referral ID Status Reason Start Date Expiration Date V isits Requested Visits Authorized [id number] Pending Review 07/22/2023 07/21/2024 1 1 Additional Source Comments (unrecognized sect ion and content) No Status Records FoundNo Status Records FoundNo Status Records FoundNo Status Records FoundNo Status Records FoundNo Status Records FoundNo Status Records FoundNo Status Records FoundNo Status Records Found INFORMATION SOURCE (unrecogn ized section and content) DATE CREATED AUTHOR 11/04/2018 [facility] DATE CREATED AUTHOR AUTHOR'S ORGANIZ ATION 11/04/2018 [employer] DATE CREATED AUTHOR AUTHOR'S ORGANIZ ATION 09/21/2020 [facility] DATE CREATED AUTHOR AUTHOR'S ORGANIZ ATION 02/06/2022 [facility] dical Specialist DATE CREATED AUTHOR AUTHOR'S ORGANIZ ATION 05/20/2022 [facility] DATE CREATED AUTHOR AUTHOR'S ORGANIZ ATION 08/17/2023 [facility] DATE CREATED AUTHOR AUTHOR'S ORGANIZ ATION 08/26/2023 [facility] DATE CREATED AUTHOR AUTHOR'S ORGANIZ ATION 11/14/2023 [facility] DATE CREATED AUTHOR AUTHOR'S ORGANIZ ATION 11/28/2023 [facility] Care Teams (unrecognized sec tion and content) Team Status: Inactive Member Role Status Dates Mary Bruno MD Primary Care Provider Active Lee Ann Morrow MD Attending Provider Active Team Status: Active Member Role Status Dates Mary Bruno MD Primary Care Provider Active Technical Assistant Relationship Specialty Start Date End Date Reema Laguerre PA [address] [place] [id number] PCP - General Physician Waitress 02/07/20 Technical Assistant Relationship Specialty Start Date End Date Reema Laguerre PA [address] [place] [id number] PCP - General Physician Waitress 02/07/20 Technical Assistant Relationship Specialty Start Date End Date Reema Laguerre PA [address] [place] [id number] PCP - General Physician Waitress 02/07/20 Technical Assistant Relationship Specialty Start Date End Date Reema Laguerre PA [address] [place] [id number] PCP - General Physician Waitress 02/07/20 Technical Assistant Relationship Specialty Start Date End Date Reema Laguerre PA [address] [place] [address] [id number] PCP - General Physician Waitress 02/07/20 Goals (unrecognized section and content) Goals may be documented in a n alternate section No data available for this sectionNot on filedocumented as of this encounterNot on filedocumented as of this encounterNot on filedocumented as of this encounterNot on filedocumented as of this encounterNot on filedocumented as of this encounterNot on filedocumented as of this encounter No data available for this section No data available for this section Reason for Visit (unrecogniz ed section and content) Reason Onset Date Comments Med Refill 06/24/2023 Reason Onset Date Comments DOT and stress results 07/07/2023 Reason Comments Follow-up 1 YR STRESS TEST [facility] 07/04/2023 @ [facility], LABS TO BE DONE [facility] Coronary Artery Disease Med Refill Reason Onset Date Comments Edema 09/01/2023 FOR RECORDS PERTAINING TO PATIENTS WHO ARE OR HAVE BEEN ENROLLED IN A CHEMICAL DEPENDENCY/SUBSTANCEABUSE PROGRAM, SOME INFORMATION MAY BE OMITTED. This clinical summary was aggregated from multiple sources. Caution should be exercised in using it in the provision of clinical care. This summary normalizes information from multiple sources, and as a consequence, information in this document may materially change the coding, format and clinical context of patient data. In addition, data may be omitted in some cases. CLINICAL DECISIONS SHOULD BE BASED ON THE PRIMARY CLINICAL RECORDS. [employer] [facility]. provides no warranty or guarantee of the accuracy or completeness of information in this document.
[2023-12-01] MEDS: LACTATED RINGER'S SOLUTION 1,000 ML 50 ML IV ×2 (11:07→15:49)
[2023-12-01] MEDS: CEFAZOLIN SODIUM/DEXTROSE,ISO 1 GM/50 ML IV.SOLN IV (12:52)
--- NOTE | 2023-12-01 13:00 | XR_ITS ---
The [address] [address] Patient Name: CAROLYN CAMARENA MRN: [id number] date: 1955 Sex: M Assigned Patient Location: [facility] Current Patient Location: Accession/Order Number: [id number] Exam Date: 12/01/2023 13:05 Report Date: 12/03/2023 06:20 At the request of: NEERAJ ROA Procedure: XR urethrogram retrograde EXAM: XR urethrogram retrograde HISTORY: Left retrograde, left stent placement COMPARISON: None. TECHNIQUE: Intraoperative spot fluoroscopic image. FINDINGS: Single intraprocedural spot fluoroscopic image demonstrates a guidewire extending retrograde through the left ureter into the upper renal collecting system. Contrast within upper collecting system. No appreciable ureteral stone or mass. XR/XR urethrogram retrograde IMPRESSION: 1. Intraprocedural left ureteral stent placement. Electronically authenticated by: CHARLIE ECHOLS Date: 12/03/2023 06:20
[2023-12-01] MEDS: IOHEXOL 300 MG/ML - 100 ML BTL INJ (14:15)
--- NOTE | 2023-12-01 14:24 | PM.URSON ---
Urology Surgery Operative Note Operative Note Procedure Date: 12/01/23 Time Out Performed: yes Pre-op Diagnosis: Recurrent bladder tumor Post-op Diagnosis: same as pre-op Procedures performed: 1. Cystoscopy. 2. Transurethral resection of bladder tumor approximately 2 cm. 3. Left ureteroscopy. 4. Thulium laser ablation of Distal ureteral tumor #5. Left retrograde pyelogram. 6. 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 On surveillance cystoscopy he had a definite recurrence on top of his left UO. He now presents for cystoscopy, TURBT, left ureteroscopy and stent placement. He has signed an informed consent after all risks were explained. Detailed description of Procedure: The patient was brought to the operating room and placed on the operating room table in the supine position. SCDs were placed on the lower extremities and turned on and functioning during the entire case. Timeout was done by all parties in the room. We all agreed upon the patient's identification and the planned procedures for this patient. Genn. anesthesia was then administered. The patient was then repositioned into the modified dorsal lithotomy position. All pressure points were satisfactorily padded. Genitalia were sterilely prepped and draped in usual fashion.I started by passing a 26 Surinamese Olympus resectoscope with a standard bipolar loop electrode per urethra and into the bladder. Anterior urethra was normal. Prostatic urethra revealed long lateral obstructing lobes. Panendoscopy in the bladder revealed high-grade damage with open diverticuli diffusely. On top of the left UO was a papillary classic TCC tumor blocking the ureter. No other tumors were noted. I then Uniformly and deeply resected this tumor through the UO. As soon as I did This, more tumor protruded from within the ureter. I then resected this Tumor. More tumor then protruded From the distal ureter and I resected That tumor also.In doing this, I was not resecting the insertion of the ureter within the bladder each time. I was simply resecting the tumor that was protruding through the UO and showing itself intravesically.At this point, I did not feel safe resecting any more tumor through the cystoscope. Therefore I elected to do a retrograde and evaluate the distal ureter Through the ureteroscope After I used the Ilich to get all the tumor out and sent for permanent sections. The resectoscope was then removed. I then passed the cystoscope into the bladder. I then slid a Glidewire through the scope and up the left ureter. I then remove the cystoscope. I then passed a semirigid ureteroscope adjacent to the wire through the urethra into the bladder and into the ureter adjacent to the wire.I was able to demonstrate that I had resected the majority of the tumor. There was only about a centimeter of tumor remaining within the distal left ureter. I then passed a 200 Angstrom laser fiber and used the thulium laser at 8 W continuously. I then ablated the remaining tumor within the distal ureter circumferentially. I then scoped up higher and found no evidence of tumor. I did a retrograde through the scope and there was no filling defect in the proximal ureter or the kidney. The ureteroscope was then removed. I then backloaded the cystoscope over the wire and passed it into the bladder and then slid a 7 Surinamese variable length ureteral stent over the wire up to the kidney. The wire was removed and there were good curls in the kidney and in the bladder. I then used the Ilich a few more times to get blood clots out of the base of the bladder which formed from the prostate oozing due to the scopes. No evidence of bleeding was remaining within the prostate or the left ureter. I then remove the scope after emptying the bladder. I elected not to place a Sampson catheter. The anesthetic was then reversed. He was then transferred to a [facility] bed and wheeled to PACU in stable condition.
[2023-12-01] MEDS: SOLIFENACIN SUCCINATE 10 MG TABLET PO (14:41)
== END 2023-12-01 16:59 | disposition home or self-care (01) ==
PROVIDERS: PCP Physician Assistant; Visit Provider Urology
PROC: (CPT 52234; principal; 2023-12-01 12:00)
DX: C67.9 Malignant neoplasm of bladder, unspecified (principal); Z85.51 Personal history of malignant neoplasm of bladder; N40.1 Benign prostatic hyperplasia with lower urinary tract symptoms; R31.0 Gross hematuria; Z87.891 Personal history of nicotine dependence; Z79.02 Long term (current) use of antithrombotics/antiplatelets; I25.10 Atherosclerotic heart disease of native coronary artery without angina pectoris; E78.5 Hyperlipidemia, unspecified; I10 Essential (primary) hypertension; Z95.5 Presence of coronary angioplasty implant and graft; K21.9 Gastro-esophageal reflux disease without esophagitis
CPT/HCPCS: 52234; 52332; 52354; 36415; 74420; 88307; J0131; J0690; J1110; J2250; J2405; J2704; J3010; Q9967

== ENCOUNTER 2024-08-16 07:32 | Outpatient (RCR) | payer MEDICARE, SELFPAY ==
[2024-08-16 08:40] VITALS: BP 107/72; PULSE 83; TEMP 36.3; O2SAT 95
[2024-08-16] MEDS: MITOMYCIN 40 MG in WATER FOR INJECTION,STERILE 20 ML 20 MG INTRAVESIC (09:23)
--- NOTE | 2024-08-16 10:17 | PC.NURSE ---
0840: Pt. to [facility] amb. for intravesicular Mitomycin treatment. Consent for reviewed and verified with patient, questions addressed, consent obtained. VSS. Pt to supine position on bed. Using sterile technique, attempt made to pass 16Fr. lyman cath. through urethra. Much resistance met after several attempts. Pt. relays c/o pressure only. Catheter changed to 18Fr. Coude and able to insert easily into bladder with immediate return of 150cc clear yellow urine. Pt. tolerated with no c/o pain. 0923: Lyman drainage bag removed. Mitomycin instilled into bladder as ordered. Lyman clamped. Instructed pt. to turn side to side and front to back every 15 x's 1hour. Pt. relays understanding.
[2024-08-16 10:40] VITALS: BP 110/72; PULSE 78; TEMP 36.6; O2SAT 99
--- NOTE | 2024-08-16 10:53 | PC.NURSE ---
0945: Pt. tolerating Mitomycin without c/o. Turning as instructed. Denies needs. 1010: Cont. to deny c/o. 1030: Mitomycin treatment completed at this time. Drainage bag re-applied to lyman. Bladder emptied for 150cc pale purple urine. Lyman cath. d/c'd. Pt. tolerated without c/o. Pt. without redness or irritation to perineal area. Home care instructions provided, pt. relays understanding. 1040: D/c'd amb to home.
== END 2024-08-24 23:59 | disposition home or self-care (01) ==
LOC: INF 07:32
PROVIDERS: PCP Physician Assistant; Visit Provider Urology
DX: Z85.51 Personal history of malignant neoplasm of bladder (principal)
CPT/HCPCS: 51700; J9281

== ENCOUNTER 2024-09-20 07:30 | Outpatient (RCR) | payer MEDICARE, SELFPAY ==
[2024-09-20 08:30] VITALS: BP 118/75; PULSE 52; TEMP 36.3; O2SAT 96
[2024-09-20] MEDS: MITOMYCIN 40 MG in WATER FOR INJECTION,STERILE 20 ML 20 MG INTRAVESIC (09:20)
--- NOTE | 2024-09-20 10:02 | PC.NURSE ---
0920: Mitomycin 40mg instilled into bladder via lyman cath. Lyman bag removed, catheter plugged. Instructed pt. to turn side to side and front to back every 15 mins x's 1 hr. Relays understanding. 0945: Tolerating treatment without c/o. Denies needs.
--- NOTE | 2024-09-20 10:32 | PC.NURSE ---
1020: Treatment complete. Sampson drainage bag re-attached. 450ML pale purple urine emptied from bladder. Sampson d/c'd without difficulty. Pt. tolerated without c/o. Reminded pt. of precautions to take at home for the first few days, pt. relays understanding. Given privacy to dress.
== END 2024-09-20 13:27 | disposition home or self-care (01) ==
LOC: INF 07:30
PROVIDERS: PCP Physician Assistant; Visit Provider Urology
DX: C67.9 Malignant neoplasm of bladder, unspecified (principal)
CPT/HCPCS: 51700; J9281

== ENCOUNTER 2024-10-18 07:41 | Outpatient (RCR) | payer MEDICARE, SELFPAY ==
[2024-10-18 08:35] VITALS: BP 113/79; PULSE 63; TEMP 36.3; O2SAT 99
[2024-10-18] MEDS: MITOMYCIN 40 MG in WATER FOR INJECTION,STERILE 20 ML 20 MG INTRAVESIC (09:10)
--- NOTE | 2024-10-18 09:19 | PC.NURSE ---
0835: Pt. to [facility] amb for Mitomycin bladder instillation. Pt. without c/o burning or pain with urination. No c/o fever, n/v or s&s of over all malaise. VSS. Using sterile technique, #16 Fr. Coude catheter inserted into bladder without difficulty. Delayed return of 50cc clear yellow urine. Pt. tolerated without c/o. 0910: Mitomycin instilled into bladder at this time. Sampson cath. clamped. Instructed pt. to turn side to side and front to back every 15 minutes x's 1 hr. Pt. relays understanding.
--- NOTE | 2024-10-18 09:42 | PC.NURSE ---
Pt. tolerating treatment without c/o. Turning as instructed. Denies needs.
== END 2024-10-19 09:12 | disposition home or self-care (01) ==
LOC: INF 07:41
PROVIDERS: PCP Physician Assistant; Visit Provider Urology
DX: Z85.51 Personal history of malignant neoplasm of bladder (principal)
CPT/HCPCS: 51700; J9281

== ENCOUNTER 2024-11-29 07:28 | Outpatient (RCR) | payer MEDICARE, SELFPAY ==
[2024-11-29 08:56] VITALS: BP 122/77; PULSE 77; TEMP 36.4; O2SAT 95
--- NOTE | 2024-11-29 08:57 | PC.NURSE ---
0845 Arrival ambulatory for Mitomycin therapy. Alert oriented. offers no complaints. 0855 Consent reviewed and signed. 0900 Procedure explained patient verbalized understanding. #18 Fr Sampson (Coude) Catheter inserted under sterile technique. returned clear yellow urine, balloon inflated with NS, patient tolerated procedure well. connected to bedside drainage bag.
[2024-11-29] MEDS: MITOMYCIN 40 MG in WATER FOR INJECTION,STERILE 20 ML 20 MG INTRAVESIC (09:17)
--- NOTE | 2024-11-29 09:19 | PC.NURSE ---
Addendum entered by Chaka Mccallum RN 11/29/24 09:22: Lyman clamped after instillation of mitomycin Original Note: Mitomycin instilled via lyman catheter. patient instructed on positioning as ordered, verbalized understanding patient states Dr. Unger instructed him to lay supine for 30 minutes due to bladder tumor on posterior aspect of bladder wall.
--- NOTE | 2024-11-29 09:55 | PC.NURSE ---
0940: Tolerating treatment without c/o. Denies needs.
== END 2024-12-24 23:59 | disposition home or self-care (01) ==
LOC: INF 07:28
PROVIDERS: PCP Physician Assistant; Visit Provider Urology
DX: Z85.51 Personal history of malignant neoplasm of bladder (principal)
CPT/HCPCS: 51720; J9281

== ENCOUNTER 2025-01-24 07:28 | Outpatient (RCR) | payer MEDICARE, SELFPAY ==
[2024-12-25 00:09] VITALS: BP 122/77; PULSE 77; TEMP 36.4; O2SAT 95
[2024-12-27 09:17] VITALS: BP 112/77; PULSE 64; TEMP 36.4; O2SAT 97
--- NOTE | 2024-12-27 09:20 | PC.NURSE ---
Arrival ambulatory, Alert oriented, procedure explained to patient verbalized understanding. #14 Fr coude catheter inserted after using urojet. urine returned clear yellow, connected to bedside bag. tolerated procedure well.
--- NOTE | 2024-12-27 09:36 | PC.NURSE ---
Mitomycin instilled via lyman catheter, tolerated well. lyman clamped plugged, patient states he was instructed per Dr. Unger to lay on back for 30 mins then reposition to left, right and prone.
--- NOTE | 2024-12-27 10:50 | PC.NURSE ---
1010 repositioned from back to left side, patient tolerating well 1025 positioned to rt side, offers no complaints 1040 repositioned to abdomen, tolerating well. 1055 patient stands at bedside, drain mitomycin into lyman bag, lyman balloon deflated. tolerated well. lyman dc'd. Patient to bathroom to clean self and to void. dressed, instructed on precautions post instillation, verbalizes understanding. patient released ambulatory
[2025-01-24 08:45] VITALS: BP 112/64; PULSE 62; TEMP 36.4; O2SAT 95
[2025-01-24] MEDS: LIDOCAINE 2% JELLY 10 ML TOPICAL (09:08)
--- NOTE | 2025-01-24 09:09 | PC.NURSE ---
0909: Trace amount clear, yellow urine noted in Sampson bag. Mitomycin, 40mg, instilled into bladder via Sampson catheter. Cath bag removed and Sampson plugged. Instructed pt. to turn side to side and front to back every 15min. x's 1 hour. Pt. relays understanding.
--- NOTE | 2025-01-24 10:32 | PC.NURSE ---
0915 patient was supine on back x30 mins as he was instructed by Dr. Unger. repositioned to left side
--- NOTE | 2025-01-24 10:35 | PC.NURSE ---
0945 postioned on rt side 1000 positioned prone 1015 positoned to left side 1020 connected to bedside draiange bag, drained bladder. 1025 lyman discontinued, tolerated well, patient given towel and washcloth to clean up. dressed. released ambulatory
== END 2025-01-24 23:59 | disposition home or self-care (01) ==
LOC: INF 07:28
PROVIDERS: PCP Physician Assistant; Visit Provider Urology
DX: Z85.51 Personal history of malignant neoplasm of bladder (principal)
CPT/HCPCS: 51720; J9281